=== PATIENT | female | born 1995 | race Caucasian/White ===

== ENCOUNTER 2016-05-04 02:50 | Emergency (ER) | payer BC, MEDICARE ==
[~2016-05-04 02:50] MED LIST: /ONDA4TA PO; ALBU17IN INH; CLON0.5T PO; COLA50CA3 PO; CONC54TA2 PO; FISH1000 PO; LOES1TAB2 PO; MICROGESTIN PO; PRIL20CA PO; TOPA50TA PO; multivitamin PO; pancreatic enzymes PO
--- NOTE | 2016-05-04 03:59 | EDDOCDS ---
Physician Documentation [facility] Name: Joyce Croft Age: 21 yrs Sex: Female : 1995 Arrival Date: 05/04/2016 Time: 02:50 Bed [facility] Private MD: Disposition: 05/04/16 03:29 Discharged to Home/Self Care. Impression: Acute stress reaction. - Condition is Stable. - Discharge Instructions: Helping Someone Who is Suicidal, Panic Attacks, Self-Destructive Behavior, Anger Management, Panic Attacks, [id number]. - Medication Reconciliation, Local Pharmacy Hours form. - Follow up: Private Physician; When: Call to arrange an appointment; Reason: Continuance of care. - Problem is an acute exacerbation. - Symptoms have improved. Historical: - Allergies: Adhesives; Azithromycin; Latex; Xanax; - Home Meds: 1. "all natural remedies when I am not feeling well" - PMHx: Anemia; Asthma; Ovarian cyst; Bipolar disorder; PTSD; Panic Disorder; Borderline Personality Disorder; Depression; ADHD; - PSHx: Adenoidectomy; Tonsillectomy; - Social history: Smoking status: Patient uses tobacco products, heavy tobacco smoker. No barriers to communication noted, The patient speaks fluent [place], Speaks appropriately for age. - Family history: Not pertinent. - : The pt / caregiver states he / she is not on anticoagulants. Home medication list is obtained from the patient. - Exposure Risk Screening:: None identified. Vital Signs: 05/04 02:59 BP 124 / 83; Pulse 60; Resp 16; Temp 98.1(O); Pulse Ox 97% ; Weight 47.17 kg / 103.99 mas lbs; Height 5 ft. 5 in. (165.10 cm); Pain 0/10; 03:36 BP 124 / 86; Pulse 60; Resp 18; Temp 98.0; Pulse Ox 98% ; Pain 0/10; slm 02:59 Body Mass Index 17.31 (47.17 kg, 165.10 cm) mas Signatures: Kirit Juarez DO DO mm11 Luh Mack,HEAT TREAT PULLER HEAT TREAT PULLER slRodolfo Luna,RN RN nn1 MTDD
--- NOTE | 2016-05-04 03:59 | EDDOCDS ---
Nurse's Notes [facility] Name: Joyce Croft Age: 21 yrs Sex: Female : 1995 Arrival Date: 05/04/2016 Time: 02:50 Bed [facility] MD: Diagnosis: Acute stress reaction Presentation: 05/04 02:52 Presenting complaint: Patient states: she did not want to go to [facility] for a year nn1 therefore she began stating she wanted to end her life to get out of it. Patient reports " I didn't mean what I said, I just wanted to get out of [facility]-way and go home" PD reports patient arrested tonight , began reporting suicidal ideations. Mental Health Triage Level: Level 2: The patient displays active suicidal ideations. Adult Sepsis Screening: The patient does not have new or worsening altered mentation. Patient's respiratory rate is less than 22. Systolic blood pressure is greater than 100. Patient has a qSOFA score of 0- Negative Sepsis Screen. Suicide/Homicide risk assessment- The patient admits to and/or has been reported to be having suicidal ideations. Status: Patient is not a information services tech or dependent. Transition of care: patient was not received from another setting of care. 02:52 Acuity: JIM Level 3 nn1 02:52 Method Of Arrival: Police Car nn1 Triage Assessment: 02:58 General: Appears distressed, Behavior is anxious, crying. Pain: Location: head Pain nn1 currently is 5 out of 10 on a pain scale. Quality of pain is described as dull. HIV screening NA for this visit Offered previously. The patient is triaged at the bedside. See Assessment in Nurses Notes section of ED record. Neurological: Level of Consciousness is awake, alert, obeys commands, Oriented to person, place, time. Respiratory: No deficits noted. Airway is patent Respiratory effort is even, unlabored, Respiratory pattern is regular, symmetrical, Breath sounds are clear bilaterally. GI: Abdomen is flat, non- distended Bowel sounds present X 4 quads. Reports nausea. Derm: Skin is pink, warm & dry. Superficial self inflicted cuts noted throughout bilateral arms, bilateral legs, abdomen. Patient reports she has not injured self in over a month. Historical: - Allergies: Adhesives; Azithromycin; Latex; Xanax; - Home Meds: 1. "all natural remedies when I am not feeling well" - PMHx: Anemia; Asthma; Ovarian cyst; Bipolar disorder; PTSD; Panic Disorder; Borderline Personality Disorder; Depression; ADHD; - PSHx: Adenoidectomy; Tonsillectomy; - Social history: Smoking status: Patient uses tobacco products, heavy tobacco smoker. No barriers to communication noted, The patient speaks fluent [place]i, Speaks appropriately for age. - Family history: Not pertinent. - : The pt / caregiver states he / she is not on anticoagulants. Home medication list is obtained from the patient. - Exposure Risk Screening:: None identified. Screenin:57 Screening information is obtained from the patient. Fall risk: No risks identified. slm Assistance ADL's: requires no assistance with activities of daily living. Abuse/DV Screen: The patient / caregiver reports he/she is: not in a situation that causes fear, pain or injury. Nutritional screening: No deficits noted. Advance Directives: Currently, there is no health care proxy. There is no active DNR order. There is no living will. There is no Power of Esl Instructional Assistant. Advance directive information has not previously been placed in an [facility] medical record. Further advance directive information is declined. home support is adequate. Assessment: 03:00 General: Appears in no apparent distress, Behavior is crying. Neurological: Level of slm Consciousness is awake, alert, obeys commands. Respiratory: Airway is patent Respiratory effort is even, unlabored. Derm: Skin is pink, warm & dry. 03:01 General: See triage assessment . nn1 03:56 General: Appears in no apparent distress, comfortable, Behavior is appropriate for age, slm cooperative, pleasant. General: pt seen by PSA . Respiratory: Airway is patent Respiratory effort is even, unlabored. Mental Health Eval: 02:54 Referral Information: Evaluation referral is generated by a police agency: [facility] on cl 9.41. The patient was referred for evaluation because Pt was abusing drugs tonight per [facility], was also arrested for drug possession, arraigned and then posted bail, reportedly made suicidal comments while at [facility] so was brought to ED by [facility].. 03:03 Mental Health history: ADHD, anxiety, Bipolar Disorder, depression, post-traumatic cl stress disorder, suicide gesture by by overdose Mental Health Admissions: [facility] 12/29...depression/SI. 03:21 Status: The patient is not a information services tech or dependent. cl Vital Signs: 02:59 BP 124 / 83; Pulse 60; Resp 16; Temp 98.1(O); Pulse Ox 97% ; Weight 47.17 kg; Height 5 mas ft. 5 in. (165.10 cm); Pain 0/10; 03:36 BP 124 / 86; Pulse 60; Resp 18; Temp 98.0; Pulse Ox 98% ; Pain 0/10; slm 02:59 Body Mass Index 17.31 (47.17 kg, 165.10 cm) [facility] Vitals: 03:58 Log In time N/A- police car arrival. slm ED Course: 02:52 Patient visited by Flora Vergara Reg. hs2 02:52 Patient moved to Waiting hs2 02:52 Patient moved to [facility] hs2 02:55 Triage Initiated nn1 02:58 Pt greeted and oriented to ED. Patient advised of names of staff involved in care, [facility] location of call hager, wait times and NPO status. Accompanied by Law Enforcement, [facility] on , Patient has correct armband on for positive identification. Placed in psych safe attire. Bed in low position. Call light in reach. Side rails up X 1. Security observing. Property removed, inventory done, secured in belongings bag- Placed in locker 5. Door closed. Noise minimized. Moved to private room. Verbal reassurance given. Warm blanket given. Pillow given. Psych Safety Check: Location: Psych Room. Visual Assessment: cooperative \\T\\ this time. 03:00 Patient visited by Timi Lafleur. [facility] 03:00 Kirit Juarez DO is Attending Physician. mm11 03:01 Patient visited by Kirit Juarez DO. mm11 03:16 Patient visited by Luh Mack LPN. slm 03:30 Patient visited by Kirit Juarez DO. mm11 03:56 Luh Mack LPN is Primary Nurse. sl 03:58 The patient / caregiver is instructed regarding the plan of care and ED course. slm 03:58 No IV's were initiated during this patient's visit. No procedures done that require slm assistance. Order Results: There are currently no results for this order. Outcome: 03:29 Discharge ordered by Provider. mm11 03:57 Discharge Assessment: Patient awake, alert and oriented x 3. No cognitive and/or slm functional deficits noted. Patient verbalized understanding of disposition instructions. patient administered narcotics - no. The following High Risk Discharge criteria are identified: Yes, pt seen by CHANCE and MD no concerns . Discharged to home ambulatory. Condition: good. Discharge instructions given to patient, Instructed on discharge instructions, follow up and referral plans. Demonstrated understanding of instructions, Pt was receptive of discharge instructions/ teaching. No special radiology studies were completed. 03:58 Patient left the ED. slm Signatures: Misael Dodge, Kirit Farrell, DO mm11 Timi Lafleur Stephanie,ADVERTISING SPECIALIST ADVERTISING SPECIALIST slm Rodolfo Hidalgo,RN RN nn1 Flora Vergara, Reg Reg hs2 Corrections: (The following items were deleted from the chart) 03:01 02:58 Derm: Skin is pink, warm & dry. nn1 nn1 MTDD
--- NOTE | 2016-05-06 04:59 | EDDOCDS ---
Physician Documentation [facility] Name: Joyce Croft Age: 21 yrs Sex: Female : 1995 Arrival Date: 05/04/2016 Time: 02:50 Bed [facility] Private MD: Disposition: 05/04/16 03:29 Discharged to Home/Self Care. Impression: Acute stress reaction. - Condition is Stable. - Discharge Instructions: Helping Someone Who is Suicidal, Panic Attacks, Self-Destructive Behavior, Anger Management, Panic Attacks, [id number]. - Medication Reconciliation, Local Pharmacy Hours form. - Follow up: Private Physician; When: Call to arrange an appointment; Reason: Continuance of care. - Problem is an acute exacerbation. - Symptoms have improved. Historical: - Allergies: Adhesives; Azithromycin; Latex; Xanax; - Home Meds: 1. "all natural remedies when I am not feeling well" - PMHx: Anemia; Asthma; Ovarian cyst; Bipolar disorder; PTSD; Panic Disorder; Borderline Personality Disorder; Depression; ADHD; - PSHx: Adenoidectomy; Tonsillectomy; - Social history: Smoking status: Patient uses tobacco products, heavy tobacco smoker. No barriers to communication noted, The patient speaks fluent Malaysian, Speaks appropriately for age. - Family history: Not pertinent. - : The pt / caregiver states he / she is not on anticoagulants. Home medication list is obtained from the patient. - Exposure Risk Screening:: None identified. Vital Signs: 05/04 02:59 BP 124 / 83; Pulse 60; Resp 16; Temp 98.1(O); Pulse Ox 97% ; Weight 47.17 kg / 103.99 mas lbs; Height 5 ft. 5 in. (165.10 cm); Pain 0/10; 03:36 BP 124 / 86; Pulse 60; Resp 18; Temp 98.0; Pulse Ox 98% ; Pain 0/10; slm 02:59 Body Mass Index 17.31 (47.17 kg, 165.10 cm) mas MDM: 04:13 Financial registration complete. [facility] 04:13 [facility] Payment Agreement was scanned into [employer] and attached to record. [facility] 14:22 T-Sheet-- Draft Copy was scanned into [employer] and attached to record. gb Signatures: Pamela Patel, Reg Reg gb Kirit Juarez, DO mm11 Luh Mack,URIAH OLIVEIRAN Love Randolph [facility] Rodolfo Hidalgo,RN RN nn1 The chart was reviewed and I authenticate all verbal orders and agree with the evaluation and treatment provided.Attachments: 04:13 [facility] Payment Agreement [facility] 14:22 T-Sheet-- Draft Copy Chart Complete MTDD
--- NOTE | 2016-05-06 04:59 | EDDOCDS ---
Physician Documentation [facility] Name: Joyce Croft Age: 21 yrs Sex: Female : 1995 Arrival Date: 05/04/2016 Time: 02:50 Bed [facility] Private MD: Disposition: 05/04/16 03:29 Discharged to Home/Self Care. Impression: Acute stress reaction. - Condition is Stable. - Discharge Instructions: Helping Someone Who is Suicidal, Panic Attacks, Self-Destructive Behavior, Anger Management, Panic Attacks, [id number]. - Medication Reconciliation, Local Pharmacy Hours form. - Follow up: Private Physician; When: Call to arrange an appointment; Reason: Continuance of care. - Problem is an acute exacerbation. - Symptoms have improved. Historical: - Allergies: Adhesives; Azithromycin; Latex; Xanax; - Home Meds: 1. "all natural remedies when I am not feeling well" - PMHx: Anemia; Asthma; Ovarian cyst; Bipolar disorder; PTSD; Panic Disorder; Borderline Personality Disorder; Depression; ADHD; - PSHx: Adenoidectomy; Tonsillectomy; - Social history: Smoking status: Patient uses tobacco products, heavy tobacco smoker. No barriers to communication noted, The patient speaks fluent [place], Speaks appropriately for age. - Family history: Not pertinent. - : The pt / caregiver states he / she is not on anticoagulants. Home medication list is obtained from the patient. - Exposure Risk Screening:: None identified. Vital Signs: 05/04 02:59 BP 124 / 83; Pulse 60; Resp 16; Temp 98.1(O); Pulse Ox 97% ; Weight 47.17 kg / 103.99 mas lbs; Height 5 ft. 5 in. (165.10 cm); Pain 0/10; 03:36 BP 124 / 86; Pulse 60; Resp 18; Temp 98.0; Pulse Ox 98% ; Pain 0/10; slm 02:59 Body Mass Index 17.31 (47.17 kg, 165.10 cm) mas MDM: 04:13 Financial registration complete. [facility] 04:13 [facility] Payment Agreement was scanned into [employer] and attached to record. [facility] 14:22 T-Sheet-- Draft Copy was scanned into [employer] and attached to record. gb Signatures: Pamela Patel, Reg Reg gb Kirit Juarez, DO mm11 Luh Mack,URIAH OLIVEIRAN Love Randolph [facility] Rodolfo Hidalgo,RN RN nn1 The chart was reviewed and I authenticate all verbal orders and agree with the evaluation and treatment provided.Attachments: 04:13 [facility] Payment Agreement [facility] 14:22 T-Sheet-- Draft Copy Chart Complete MTDD
--- NOTE | 2016-05-06 04:59 | EDDOCDS ---
Nurse's Notes [facility] Name: Joyce Croft Age: 21 yrs Sex: Female : 1995 Arrival Date: 05/04/2016 Time: 02:50 Bed [facility] MD: Diagnosis: Acute stress reaction Presentation: 05/04 02:52 Presenting complaint: Patient states: she did not want to go to long term for a year nn1 therefore she began stating she wanted to end her life to get out of it. Patient reports " I didn't mean what I said, I just wanted to get out of long term and go home" PD reports patient arrested tonight , began reporting suicidal ideations. Mental Health Triage Level: Level 2: The patient displays active suicidal ideations. Adult Sepsis Screening: The patient does not have new or worsening altered mentation. Patient's respiratory rate is less than 22. Systolic blood pressure is greater than 100. Patient has a qSOFA score of 0- Negative Sepsis Screen. Suicide/Homicide risk assessment- The patient admits to and/or has been reported to be having suicidal ideations. Status: Patient is not a vice president consulting services or dependent. Transition of care: patient was not received from another setting of care. 02:52 Acuity: JIM Level 3 nn1 02:52 Method Of Arrival: Police Car nn1 Triage Assessment: 02:58 General: Appears distressed, Behavior is anxious, crying. Pain: Location: head Pain nn1 currently is 5 out of 10 on a pain scale. Quality of pain is described as dull. HIV screening NA for this visit Offered previously. The patient is triaged at the bedside. See Assessment in Nurses Notes section of ED record. Neurological: Level of Consciousness is awake, alert, obeys commands, Oriented to person, place, time. Respiratory: No deficits noted. Airway is patent Respiratory effort is even, unlabored, Respiratory pattern is regular, symmetrical, Breath sounds are clear bilaterally. GI: Abdomen is flat, non- distended Bowel sounds present X 4 quads. Reports nausea. Derm: Skin is pink, warm & dry. Superficial self inflicted cuts noted throughout bilateral arms, bilateral legs, abdomen. Patient reports she has not injured self in over a month. Historical: - Allergies: Adhesives; Azithromycin; Latex; Xanax; - Home Meds: 1. "all natural remedies when I am not feeling well" - PMHx: Anemia; Asthma; Ovarian cyst; Bipolar disorder; PTSD; Panic Disorder; Borderline Personality Disorder; Depression; ADHD; - PSHx: Adenoidectomy; Tonsillectomy; - Social history: Smoking status: Patient uses tobacco products, heavy tobacco smoker. No barriers to communication noted, The patient speaks fluent Iranian, Speaks appropriately for age. - Family history: Not pertinent. - : The pt / caregiver states he / she is not on anticoagulants. Home medication list is obtained from the patient. - Exposure Risk Screening:: None identified. Screenin:57 Screening information is obtained from the patient. Fall risk: No risks identified. slm Assistance ADL's: requires no assistance with activities of daily living. Abuse/DV Screen: The patient / caregiver reports he/she is: not in a situation that causes fear, pain or injury. Nutritional screening: No deficits noted. Advance Directives: Currently, there is no health care proxy. There is no active DNR order. There is no living will. There is no Power of Nutrition Representative. Advance directive information has not previously been placed in an [facility] medical record. Further advance directive information is declined. home support is adequate. Assessment: 03:00 General: Appears in no apparent distress, Behavior is crying. Neurological: Level of slm Consciousness is awake, alert, obeys commands. Respiratory: Airway is patent Respiratory effort is even, unlabored. Derm: Skin is pink, warm & dry. 03:01 General: See triage assessment . nn1 03:56 General: Appears in no apparent distress, comfortable, Behavior is appropriate for age, slm cooperative, pleasant. General: pt seen by PSA . Respiratory: Airway is patent Respiratory effort is even, unlabored. Mental Health Eval: 02:54 Referral Information: Evaluation referral is generated by a police agency: [facility] on cl 9.41. The patient was referred for evaluation because Pt was abusing drugs tonight per [facility], was also arrested for drug possession, arraigned and then posted bail, reportedly made suicidal comments while at PS so was brought to ED by [facility].. 03:03 Mental Health history: ADHD, anxiety, Bipolar Disorder, depression, post-traumatic cl stress disorder, suicide gesture by by overdose Mental Health Admissions: [facility] 12/29...depression/SI. 03:21 Status: The patient is not a vice president consulting services or dependent. cl 03:55 [facility] Behavioral Health: The patient is not an established patient of [facility] Behavioral Health. 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 Pt is calm and cooperative, continues to deny any SI/HI, was threatened with spending a year in long term by Police so admittedly made statements so she could "go home". Pt denies any MH complaints, admits to daily cannabis, can CFS and requests d/c home. . Delusions are denied. Patient's mood is anxious, Hallucinations are denied. Mental Health history: Current Outpatient Mental Health Services: Therapist / Agency: Jennifer Vaughn. Current living environment is The patient currently lives with a roommate, . The patient is single. Patient presents to Emergency Department with the following symptoms within the past 2 weeks: drug abuse. Substance abuse: Patient uses marijuana daily. Mental status exam: Patients appearance is alternative, unkempt, Patient's behavior is cooperative, Speech is normal. Affect is appropriate. Mood is anxious. Hallucinations are denied. Appetite is normal. Memory is good. Energy level is normal. Content of thought is normal. Thought process is intact. Cognitive level is oriented to person, place, time and situation Patient's insight is fair. Judgement is fair. Rapport with interviewer is good. Suicidal Ideation is denied. Homicidal ideation is denied. Disposition: Medically cleared for disposition by Kirit Juarez DO Psychiatric Consult is deferred per ED physician, Dr Juarez. Disposition: The patient has a safe destination which is Pt requests d/c to friend's residence across the street from [facility] ED, declines any transportation, desires short walk to friend's residence where she is expected shortly, will f/u with her therapist Jennifer Vaughn as scheduled, has planned a trip to [place] this weekend to visit her "best friend". [facility] Admission Criteria: Not Applicable. [place] Safe [place]: [place] Safe [place] is not applicable because the patient does not display any suicidal or homicidal ideations and does not pose a risk to self or others. DSM-V Differential Diagnosis: Acute Stress Disorder (F 43.0). Insurance Pre-Certification: Not Required. Family Notification: Notification to family of patient status is not currently needed or appropriate. Vital Signs: 02:59 BP 124 / 83; Pulse 60; Resp 16; Temp 98.1(O); Pulse Ox 97% ; Weight 47.17 kg; Height 5 mas ft. 5 in. (165.10 cm); Pain 0/10; 03:36 BP 124 / 86; Pulse 60; Resp 18; Temp 98.0; Pulse Ox 98% ; Pain 0/10; m 02:59 Body Mass Index 17.31 (47.17 kg, 165.10 cm) [facility] Vitals: 03:58 Log In time N/A- police car arrival. [facility] ED Course: 02:52 Patient visited by Flora Vergara, Reg. hs2 02:52 Patient moved to [facility] hs2 02:52 Patient moved to [facility] hs2 02:55 Triage Initiated nn1 02:58 Pt greeted and oriented to ED. Patient advised of names of staff involved in care, [facility] location of call hager, wait times and NPO status. Accompanied by Law Enforcement, [facility] on , Patient has correct armband on for positive identification. Placed in psych safe attire. Bed in low position. Call light in reach. Side rails up X 1. Security observing. Property removed, inventory done, secured in belongings bag- Placed in locker 5. Door closed. Noise minimized. Moved to private room. Verbal reassurance given. Warm blanket given. Pillow given. Psych Safety Check: Location: Psych Room. Visual Assessment: cooperative \\T\\ this time. 03:00 Patient visited by Timi Lafleur. mas 03:00 Kirit Juarez DO is Attending Physician. mm11 03:01 Patient visited by Kirit Juarez DO. mm11 03:16 Patient visited by Luh Mack LPN. slm 03:30 Patient visited by Kirit Juarez DO. mm11 03:56 Luh Mack LPN is Primary Nurse. [facility] 03:58 The patient / caregiver is instructed regarding the plan of care and ED course. [facility] 03:58 No IV's were initiated during this patient's visit. No procedures done that require slm assistance. 04:13 [facility] Payment Agreement was scanned into [employer] and attached to record. [facility] 04:18 Patient name changed from Joyce\\S\\Erica\\S\\Hare\\S\\ to Joyce\\S\\L\\S\\Hare. EDMS 14:22 T-Sheet-- Draft Copy was scanned into [employer] and attached to record. Order Results: There are currently no results for this order. Outcome: 03:29 Discharge ordered by Provider. mm11 03:57 Discharge Assessment: Patient awake, alert and oriented x 3. No cognitive and/or slm functional deficits noted. Patient verbalized understanding of disposition instructions. patient administered narcotics - no. The following High Risk Discharge criteria are identified: Yes, pt seen by PSA and MD no concerns . Discharged to home ambulatory. Condition: good. Discharge instructions given to patient, Instructed on discharge instructions, follow up and referral plans. Demonstrated understanding of instructions, Pt was receptive of discharge instructions/ teaching. No special radiology studies were completed. 03:58 Patient left the ED. m Signatures: Dispatcher [employer] EDMS Misael Dodge, CHANCE PSA Pamela England, Reg Reg gb Kirit Juarez DO DO mm11 Timi Lafleur Stephanie, LPN LPN slm Hook, Sandra Rodolfo Redding RN RN nn1 Flora Vergara, Reg Reg hs2 Corrections: (The following items were deleted from the chart) 03:01 02:58 Derm: Skin is pink, warm & dry. nn1 nn1 Chart Complete MTDD
== END 2016-05-04 03:58 | disposition home or self-care (01) ==
LOC: M ED 02:50
DX: F43.0 Acute stress reaction (principal); F32.9 Major depressive disorder, single episode, unspecified; F17.210 Nicotine dependence, cigarettes, uncomplicated; Z91.040 Latex allergy status; Z88.8 Allergy status to other drugs, medicaments and biological substances; Z88.1 Allergy status to other antibiotic agents; Z91.09 Other allergy status, other than to drugs and biological substances

== ENCOUNTER 2016-12-15 00:19 | Emergency (ER) | payer BC, MEDICARE ==
[~2016-12-15] VITALS: Ht 165.1 cm; Wt 52.3 kg
[2016-12-15 00:28] VITALS: BP 119/66
[2016-12-15] MEDS ORDERED: AUGM875T28 PO (01:13)
[2016-12-15] MEDS ORDERED: AUGMENTIN 875 MG TAB PO ONE (01:15)
== END 2016-12-15 01:55 | disposition home or self-care (01) ==
LOC: M ED 00:19
DX: S61.431A Puncture wound without foreign body of right hand, initial encounter (principal); Z87.891 Personal history of nicotine dependence; W53.11XA Bitten by rat, initial encounter; Y92.099 Unspecified place in other non-institutional residence as the place of occurrence of the external cause; Y93.89 Activity, other specified; Y99.9 Unspecified external cause status

== ENCOUNTER 2018-03-09 15:52 | Emergency (ER) | payer BC, MEDICARE ==
[~2018-03-09] VITALS: Ht 162.6 cm; Wt 50.9 kg
[~2018-03-09 15:52] MED LIST changes: +AUGM875T28 PO
[2018-03-09 16:42] LABS: URINE PREG TEST NEGATIVE (NEGATIVE)
[2018-03-09 17:47] LABS: HEMOGLOBIN A1c 5.4 %
[2018-03-09 17:55] LABS: ALBUMIN 4.4 GM/DL (3.2-5.2); ALT/SGPT 18 U/L (12-78); BILIRUBIN,TOTAL 0.6 MG/DL (0.2-1.0); BLOOD UREA NITROGEN 11 MG/DL (7-18); CALCIUM LEVEL 8.9 MG/DL (8.5-10.1); CARBON DIOXIDE LEVEL 26 MEQ/L (21-32); CHLORIDE LEVEL 107 MEQ/L (98-107); CREATININE FOR GFR 0.75 MG/DL (0.55-1.30); GLOMERULAR FILTRATION RATE > 60.0 (>60); GLUCOSE, FASTING 90 MG/DL (70-100); POTASSIUM SERUM 4.8 MEQ/L (3.5-5.1); SODIUM LEVEL 140 MEQ/L (136-145); TOTAL PROTEIN 7.5 GM/DL (6.4-8.2)
[2018-03-09 18:01] VITALS: BP 131/58
== END 2018-03-09 18:07 | disposition home or self-care (01) ==
LOC: M ED 15:52
DX: E16.2 Hypoglycemia, unspecified (principal)

== ENCOUNTER 2018-05-09 17:53 | Inpatient (IN) | payer BC, MEDICARE ==
[~2018-05-09] VITALS: Ht 162.6 cm; Wt 52.0 kg
[2018-05-09 19:10] LABS: HEMATOCRIT 37.5 % (36.0-47.0); HEMOGLOBIN 12.6 g/dl (12.0-15.5); MEAN CORPUSCULAR HEMOGLOBIN 30.3 pg (27.0-33.0); MEAN CORPUSCULAR HGB CONC 33.6 g/dl (32.0-36.5); MEAN CORPUSCULAR VOLUME 90.1 fl (80.0-96.0); PLATELET COUNT, AUTOMATED 168 10^3/uL (150-450); RED BLOOD COUNT 4.16 10^6/uL (4.00-5.40); WHITE BLOOD COUNT 10.1 10^3/uL (4.0-10.0)
[2018-05-09 19:16] LABS: HCG, SERUM QUALITATIVE NEGATIVE (NEGATIVE)
[2018-05-09 19:32] LABS: ACETAMINOPHEN LEVEL < 2.0 UG/ML (10.0-30.0); ALBUMIN 4.2 GM/DL (3.2-5.2); ALT/SGPT 14 U/L (12-78); AMPHETAMINES LEVEL URINE NEGATIVE (NEGATIVE); BARBITURATES URINE NEGATIVE (NEGATIVE); BENZODIAZEPINES URINE NEGATIVE (NEGATIVE); BILIRUBIN,DIRECT 0.1 MG/DL (0.0-0.2); BILIRUBIN,TOTAL 0.8 MG/DL (0.2-1.0); BLOOD UREA NITROGEN 12 MG/DL (7-18); CALCIUM LEVEL 8.2 MG/DL (8.5-10.1); CANNABINOIDS URINE NEGATIVE (NEGATIVE); CARBON DIOXIDE LEVEL 21 MEQ/L (21-32); CHLORIDE LEVEL 111 MEQ/L (98-107); COCAINE METABOLITE URINE NEGATIVE (NEGATIVE); CREATININE FOR GFR 0.67 MG/DL (0.55-1.30); ETHYL ALCOHOL (ETHANOL) < 0.003 % (0.000-0.010); GLOMERULAR FILTRATION RATE > 60.0 (>60); GLUCOSE, FASTING 82 MG/DL (70-100); METHADONE URINE NEGATIVE (NEGATIVE); OPIATES URINE NEGATIVE (NEGATIVE); PHENCYCLIDINE URINE NEGATIVE (NEGATIVE); POTASSIUM SERUM 4.3 MEQ/L (3.5-5.1); SALICYLATE LEVEL < 1.7 MG/DL (5.0-30.0); SODIUM LEVEL 140 MEQ/L (136-145); TOTAL PROTEIN 7.2 GM/DL (6.4-8.2)
[2018-05-09] MEDS ORDERED: ACETAMINOPHEN TAB 650MG DOSE (2X325MG) PO PRN (20:15)
[2018-05-09] MEDS ORDERED: MOM 30ML SUSPENSION UDC PO PRN (20:15)
[2018-05-09] MEDS ORDERED: OLANZapine ORAL DISINTEGRATING TAB 5MG PO PRN (20:15)
[2018-05-09] MEDS ORDERED: MAALOX 30 ML SUSP *UDC PO PRN (20:15)
[2018-05-09] MEDS ORDERED: traZODone 50 MG TAB PO PRN (20:15)
[2018-05-09] MEDS ORDERED: clonazePAM 0.5 MG TAB PO ONE (20:30)
[2018-05-09] MEDS ORDERED: ADACEL/BOOSTRIX VACCINE (DIPHTH/PERTUSS/ACELL/TETANUS)0.5ML SYR (90715) IM ONE (20:30)
[2018-05-09 21:11] VITALS: BP 134/66
[2018-05-10] MEDS ORDERED: LORazepam 2 MG TAB PO ONE (00:30)
[2018-05-10 06:06] VITALS: BP 109/53
[2018-05-10] MEDS: SERTRALINE HCL 50 MG TAB PO SCH (09:00)
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
[2018-05-10 18:00] VITALS: BP 98/56
[2018-05-10] MEDS ORDERED: ONDANSETRON 4 MG ORAL DISINTEGRATING TAB (Q0162 PER 1MG) PO PRN (21:45)
[2018-05-10] MEDS: LORazepam 0.5 MG TAB PO PRN (21:48)
[2018-05-10] MEDS: MIRTAZAPINE 15 MG TAB PO SCH (23:37)
[2018-05-11 06:21] VITALS: BP 105/58
[2018-05-11] MEDS: SERTRALINE HCL 50 MG TAB PO SCH (09:00)
--- NOTE | 2018-05-11 16:05 | MHIPNPDOC ---
[facility] Progress Note Progress Note DATE OF SERVICE: 05/11/18 HISTORY: Patient is a 23 -year-old , female, who according to ED report: "Pt stated she was so upset, "hard to remember what she said today or weather she was suicidal or not," Michel Garvey reported he presented her to ED or he was going to call (!!, pt came with him after he saw her left forearm, and all the blood. pt was very guarded in her presentation, SO Mcihel Garvey stated she was suicidal with plan kept saying "I don't want to exist anymore, I want to , I don't want to be alive , they will have to take me out in a body bag," then Michel went to take a shower, pt stated she found a "spread cutter, " and "kept trying to cut deeper, but the press box custodian wasn't sharp enough," Pt made many cuts on her left forearm, cuts monthly her thigh area, sees Jennifer Garridoil Therapist at [facility], "I didn't tell Jennifer, wanted her to think I have been doing well, I have been having an urge to cut for over a month." Per Michel Garvey, Stressors are 1 Being told they have to leave their apartment by September, 2. has to go back to work at . helping , "after taking a month off for mental reasons," 3. Wants to go to cosmetology school, can't now if they move, 4. Borderline personality 5. Seasonal depression, 6. [place] secure in apartment now has to leave, 7. her adoptive father is getting older and dying. Pt reports sleeping is normalizing past week, eating more the past week, "can't or won't answer if she is +SI, "I not sure," very guarded in her presentation, denies HI, AH, VH, Illegal drug use, drinks wine socially, has had 4 attempts of suicide in the past 2 by hanging, and 2 by OD, last time in 2016, before Michel came into her life. Pt also reported grieving the loss of a friend Letty over a year ago, "drug OD."Pt presents hopeless and helpless, very tear full." VITAL SIGNS: See below. NEW TEST RESULTS: See below CURRENT MEDICATIONS: See below. MENTAL STATUS EXAMINATION: General Appearance: well groomed, appears stated age, hospital scrubs/clothing, lacerations Build: average Demeanor: average, pleasant Eye Contact: good Activity: average, calm Behavior: cooperative, anhedonia Speech: clear, spontaneous, reg/rate,rhythm,volume Mood: euthymic Affect: congruent with mood Thought Process: logical/linear Thought Content (Other): obsessional Thought Content (Aggressive): none reported Perception (Hallucinations): none reported Perception (Other): none reported Cognition (Impairment of): attention/concentration Cognition(Intelligence Est.): average Oriented: Awake, Alert, Oriented times three Insight: Improving Judgment: Poor Psychosis: Denies Diagnoses 1. Major Depressive disorder, recurrent 2. PTSD 3. borderline Personality disorder ASSESSMENT: She is very pleasant, she looks happy, she is goal directed, she says she wants to be a engineering department chair, she says she feels embarrassed about making poor choices, about "loosing my marbles" because "I haven't had a slip off in a long period of time". She says this sitaton was triggered in part because her landlord has told her and her BF that they had to leave in September. She was upset because she has been very supportive to the landlord and then she felt betrayed by this man. When she was in the middle of this crisis, her BF was watching TV and although he was supportive, she would have felt better if he would have reacted sooner. She says she has a room with pet rats, she has a dog and a cat and it will be difficult for her to find a place to live. MANAGEMENT PLAN: Continue with the same treatment plan. TIME SPENT: 30 minutes. Vital Signs Vital Signs Date Time Temp Pulse Resp B/P (MAP) Pulse Ox O2 Delivery O2 Flow Rate FiO2 05/11/18 06:21 98.8 56 14 105/58 (74) 05/09/18 21:11 Room Air 05/09/18 20:50 99 Current Medications Current Medications Acetaminophen (Tylenol Tab) 650 mg Q6HP PRN PO HEADACHE or DISCOMFORT Last administered on 05/10/18at 22:02; Start 05/09/18 at 20:15 Al Hydrox/Mg Hydrox/Simethicone (Mylanta) 30 ml Q4HP PRN PO HEARTBURN/INDIGESTION Last administered on 05/10/18at 23:08; Start 05/09/18 at 20:15 Lorazepam (Ativan) 0.5 mg Q6HP PRN PO ANXIETY Last administered on 05/10/18at 21:48; Start 05/10/18 at 21:45 Magnesium Hydroxide (Milk Of Magnesia) 30 ml DAILYPRN PRN PO CONSTIPATION; Start 05/09/18 at 20:15 Mirtazapine (Remeron) 30 mg QHS PO Last administered on 05/10/18at 23:37; Start 05/10/18 at 21:00 Olanzapine (ZyPREXA ZYDIS) 5 mg Q6HP PRN PO ANXIETY/AGITATION; Start 05/09/18 at 20:15 Ondansetron HCl (Zofran Odt) 4 mg Q4HP PRN PO NAUSEA OR VOMITING Last administered on 05/10/18at 21:48; Start 05/10/18 at 21:45 Sertraline HCl (Zoloft) 50 mg DAILY PO ; Start 05/10/18 at 09:00 Trazodone HCl (Desyrel) 50 mg QHSP PRN PO INSOMNIA; Start 05/09/18 at 20:15 Allergies Coded Allergies: Alprazolam (Verified Allergy, Severe, throat closure, 05/09/18) Azithromycin (Verified Allergy, Intermediate, hives, 05/09/18) Latex (Verified Allergy, Unknown, RASH, 07/16/12) MARY SEGURA MD May 11, 2018 15:37
[2018-05-11 18:00] VITALS: BP 117/57
[2018-05-11] MEDS: MIRTAZAPINE 15 MG TAB PO SCH (21:00)
[2018-05-11] MEDS: LORazepam 0.5 MG TAB PO PRN (22:49)
[2018-05-12] MEDS: LORazepam 0.5 MG TAB PO PRN (05:47)
[2018-05-12 06:00] VITALS: BP 93/52
--- NOTE | 2018-05-12 06:23 | HPE ---
DATE OF ADMISSION: 05/09/2018 Please refer to the psychiatric history and evaluation for further details on this admission. This examination and history performed is intended for medical issues which may need treatment, followup or consultation on this 23-year-old male. ALLERGIES: - ALPRAZOLAM - ZITHROMAX - LATEX SOCIAL HISTORY: She is single. ETOH - once a week she will have a couple of drinks. Smokes - she says she quit 03/10/2017. Recreational drug use - she used to smoke week, dabbled in a few other things and has had no drugs or weed since 2016. PAST MEDICAL HISTORY: 1. She has had hypoglycemia, she needs to watch what she eats. 2. History of depression. 3. Post traumatic stress disorder (PTSD). PAST SURGICAL HISTORY: Tonsillectomy and adenoidectomy. HOME MEDICATIONS: None. LABORATORY STUDIES: WBC 10.1, hemoglobin 12.6, hematocrit 37.5, platelets 168. Sodium 140, potassium 4.3, chloride 111, CO2 21, BUN 12, creatinine 0.67, calcium low at 8.2. Toxicology screen was negative. REVIEW OF SYSTEMS: 10 systems review was done and other than a few superficial lacerations on her left inner forearm was unremarkable. She states occasional constipation. Denies abdominal pain. No hematochezia, melena or rectal bleeding. PHYSICAL EXAMINATION: 23-year-old cooperative female in no acute distress. Height 64 inches. Weight 52.1 kg. Body mass index (BMI) 19.7. The patient is alert and oriented times three. Blood pressure is 105/58. Pulse 56. Respirations 14. Temperature 98.8. Pupils equal and react to light. Extraocular movements intact. Cornea and sclera clear. Conjunctiva normal. No facial asymmetry. Pharynx, tongue and gums pink and moist. Tongue is midline. Neck is supple, without lymphadenopathy. No thyromegaly. No goiter. Carotids 2+, without bruit. Chest clear to auscultation, without wheeze or retraction. Heart is regular. Abdomen benign. Bowel sounds positive. Genitourinary ()/Rectal: Not done. Extremities show equal strength, full range of motion. No cyanosis, clubbing or edema. Peripheral pulses equal and palpable bilaterally. Skin is warm and dry. Left inner forearm has numerous superficial lacerations. No redness, drainage or swelling. IMPRESSION AND PLAN: 1. Psychiatric. Plan per psychiatry. 2. Numerous lacerations left inner forearm. No redness, drainage or swelling. Monitor for infection. 3. History of hypoglycemia. Continue to monitor diet. 4. No acute medical issues.
[2018-05-12] MEDS: SERTRALINE HCL 50 MG TAB PO SCH (09:00)
--- NOTE | 2018-05-12 11:28 | MHIPNPDOC ---
[facility] Progress Note Progress Note DATE OF SERVICE: 05/12/18 HISTORY: As per Dr. Wagner: "Patient is a 23 -year-old , female, who according to ED report: "Pt stated she was so upset, "hard to remember what she said today or weather she was suicidal or not," Michel Garvey reported he presented her to ED or he was going to call (!!, pt came with him after he saw her left forearm, and all the blood. pt was very guarded in her presentation, SO Michel Garvey stated she was suicidal with plan kept saying "I don't want to exist anymore, I want to , I don't want to be alive , they will have to take me out in a body bag," then Michel went to take a shower, pt stated she found a "core cutter and reamer, " and "kept trying to cut deeper, but the box storage worker wasn't sharp enough," Pt made many cuts on her left forearm, cuts monthly her thigh area, sees Jennifer Garridoil Therapist [place] [facility], "I didn't tell Jennifer, wanted her to think I have been doing well, I have been having an urge to cut for over a month." Per Michel Garvey, Stressors are 1 Being told they have to leave their apartment by September, 2. has to go back to work at [employer]. helping , "after taking a month off for mental reasons," 3. Wants to go to cosmetology school, can't now if they move, 4. Borderline personality 5. Seasonal depression, 6. [address] secure in apartment now has to leave, 7. her adoptive father is getting older and dying. Pt reports sleeping is normalizing past week, eating more the past week, "can't or won't answer if she is +SI, "I not sure," very guarded in her presentation, denies HI, AH, VH, Illegal drug use, drinks wine socially, has had 4 attempts of suicide in the past 2 by hanging, and 2 by OD, last time in 2016, before Michel came into her life. Pt also reported grieving the loss of a friend Letty over a year ago, "drug OD."Pt presents hopeless and helpless, very tear full."" VITAL SIGNS: See below. NEW TEST RESULTS: See below CURRENT MEDICATIONS: See below. MENTAL STATUS EXAMINATION: General Appearance: well groomed, appears stated age, own clothing, lacerations Build: average Demeanor: average, pleasant Eye Contact: good Activity: average, calm Behavior: cooperative, anxious Speech: clear, spontaneous, reg/rate,rhythm,volume Mood: euthymic,full, anxious Affect: congruent with mood Thought Process: logical/linear Thought Content (Other): none reported Thought Content (Aggressive): none reported Perception (Hallucinations): none reported Perception (Other): none reported Cognition (Impairment of): none reported Cognition(Intelligence Est.): average Oriented: Awake, Alert, Oriented times three Insight: fair Judgment: fair Psychosis: Denies Diagnoses 1. Major Depressive disorder, recurrent 2. PTSD 3. borderline Personality disorder ASSESSMENT: Pt seen and states she's doing well and denies depression. States she's embarrassed she cut herself, "had a slip," and embarrassed she's here. States she's feeling much better b/c her boyfriend has worked things out with her landlord who agrees to allow her to stay until the fall as previously agreed which she feels good about. 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 Denies she feels she needs psychotropic medication as she's been doing well in therapy with Jennifer Stiles. States she would like something for occasional anxiety. Recommended atarax prn and if she doesn't like it or has side effects it can be discontinued. Refuses to take zoloft and remeon so will d/c. Is attending groups and finding helpful. Denies SI/HI, hallucinations, delusions. Feels safe here. Is looking forward to going home soon and seeing her pet rats, dog, and, cat. MANAGEMENT PLAN: Continue with the same treatment plan. D/c zoloft and remeron as pt refuses to take. Provide atarax prn anxiety Medications: atarax 10mg q6hr prn anxiety Trazodone 50 mg QHSP PRN PO INSOMNIA TIME SPENT: 30 minutes. Vital Signs Vital Signs Date Time Temp Pulse Resp B/P (MAP) Pulse Ox O2 Delivery O2 Flow Rate FiO2 05/12/18 06:00 97.9 65 18 93/52 (66) Room Air 05/09/18 20:50 99 Current Medications Current Medications Acetaminophen (Tylenol Tab) 650 mg Q6HP PRN PO HEADACHE or DISCOMFORT Last administered on 05/10/18at 22:02; Start 05/09/18 at 20:15 Al Hydrox/Mg Hydrox/Simethicone (Mylanta) 30 ml Q4HP PRN PO HEARTBURN/INDIGESTION Last administered on 05/10/18at 23:08; Start 05/09/18 at 20:15 Lorazepam (Ativan) 0.5 mg Q6HP PRN PO ANXIETY Last administered on 05/12/18at 05:47; Start 05/10/18 at 21:45 Magnesium Hydroxide (Milk Of Magnesia) 30 ml DAILYPRN PRN PO CONSTIPATION; Start 05/09/18 at 20:15 Mirtazapine (Remeron) 30 mg QHS PO Last administered on 05/10/18at 23:37; Start 05/10/18 at 21:00 Olanzapine (ZyPREXA ZYDIS) 5 mg Q6HP PRN PO ANXIETY/AGITATION; Start 05/09/18 at 20:15 Ondansetron HCl (Zofran Odt) 4 mg Q4HP PRN PO NAUSEA OR VOMITING Last administered on 05/10/18at 21:48; Start 05/10/18 at 21:45 Sertraline HCl (Zoloft) 50 mg DAILY PO ; Start 05/10/18 at 09:00 Trazodone HCl (Desyrel) 50 mg QHSP PRN PO INSOMNIA; Start 05/09/18 at 20:15 Allergies Coded Allergies: Alprazolam (Verified Allergy, Severe, throat closure, 05/09/18) Azithromycin (Verified Allergy, Intermediate, hives, 05/09/18) Latex (Verified Allergy, Unknown, RASH, 07/16/12) STEPHEN WIGGINS DO May 12, 2018 10:55 am
[2018-05-12] MEDS ORDERED: hydrOXYzine 10 MG TAB PO PRN (11:30)
[2018-05-12 18:26] VITALS: BP 123/70
[2018-05-13 06:34] VITALS: BP 96/50
[2018-05-13] MEDS ORDERED: DOCUSATE SODIUM 100 MG CAP PO SCH (09:00)
--- NOTE | 2018-05-13 09:06 | MHDSPDOC ---
[facility] Discharge Summary Discharge Summary DATE OF ADMISSION: May 09, 2018 at 8:55 pm DATE OF DISCHARGE: May 13, 2018 DISCHARGE DIAGNOSES: 1. Major Depressive disorder, recurrent 2. PTSD 3. borderline Personality disorder REASON FOR ADMISSION: As per Dr. Wagner: "Patient is a 23 -year-old , female, who according to ED report: "Pt stated she was so upset, "hard to remember what she said today or weather she was suicidal or not," Michel (ROSA Garvey reported he presented her to ED or he was going to call (!!, pt came with him after he saw her left forearm, and all the blood. pt was very guarded in her presentation, SO Michel Garvey stated she was suicidal with plan kept saying "I don't want to exist anymore, I want to , I don't want to be alive , they will have to take me out in a body bag," then Michel went to take a shower, pt stated she found a "tip cutter, " and "kept trying to cut deeper, but the slip box changer wasn't sharp enough," Pt made many cuts on her left forearm, cuts monthly her thigh area, sees Jennifer Garridoil Therapist at [facility], "I didn't tell Jennifer, wanted her to think I have been doing well, I have been having an urge to cut for over a month." Per Michel Garvey, Stressors are 1 Being told they have to leave their apartment by September, 2. has to go back to work at . helping , "after taking a month off for mental reasons," 3. Wants to go to cosmetology school, can't now if they move, 4. Borderline personality 5. Seasonal depression, 6. [place] secure in apartment now has to leave, 7. her adoptive father is getting older and dying. Pt reports sleeping is normalizing past week, eating more the past week, "can't or won't answer if she is +SI, "I not sure," very guarded in her presentation, denies HI, AH, VH, Illegal drug use, drinks wine socially, has had 4 attempts of suicide in the past 2 by hanging, and 2 by OD, last time in 2015, before Michel came into her life. Pt also reported grieving the loss of a friend Letty over a year ago, "drug OD."Pt presents hopeless and helpless, very tear full."" CONSULTANTS INVOLVED: none TREATMENT AND PROGRESS ON THE UNIT : Pt was admitted to [facility], seen for psychiatric assessment and Dr. Wagner attempt to started pt on zoloft 25mg daily for mood and anxiety which she refused stating that she didn't feel she needed any intermediate antipsychotic treatment as she thought her outpatient therapy with Jennifer Byrnes at [facility] was beneficial enought. She was provided vistaril 10mg q6hr prn anxiety and trazodone 50mg qhs prn insomnia. Pt did receive ativan prn anxiety when she was admitted that she took frequently at night so it was discontinued and pt continued to be medication seeking for it stating she couldn't take benadryl or vistaril b/c they gave her a stomach ache. Pt found her medications beneficial and tolerated them well. She attended groups daily during her stay. Her symptoms improved with treatment. On day of discharge she denied depression, anxiety, insomnia, SI/HI, hallucinations, delusions. She was discharged home after family meeting with her boyfriend with follow-up at [facility] with Jennifer Byrnes. She felt safe for discharge. DISCHARGE ASSESSMENT: Pt seen and states she's doing well and denies depression, is looking forward to going home today. Continues to be embarrassed she cut herself that she's here. States she's feeling much better b/c her boyfriend has worked things out with her landlord who agrees to allow her to stay until the fall as previously agreed which she feels good about. 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 Denies she feels she needs psychotropic medication as she's been doing well in therapy with Jennifer Byrnes. Would like to continue atarax prn anxiety outpatient just incase she feels she needs something to help uncontrollable anxiety at home. Is attending groups and finding helpful. Denies depression, anxiety, insomnia, SI/HI, hallucinations, delusions. Feels safe to be discharged home with her boyfriend. Is looking forward to going home today and seeing her pet rats, dog, and, cat. MENTAL STATUS EXAMINATION ON DISCHARGE: General Appearance: well groomed, appears stated age, own clothing, lacerations Build: average Demeanor: average, pleasant Eye Contact: good Activity: average, calm Behavior: cooperative Speech: clear, spontaneous, reg/rate,rhythm,volume Mood: euthymic,full, bright Affect: congruent with mood Thought Process: logical/linear Thought Content (Other): none reported Thought Content (Aggressive): none reported Perception (Hallucinations): none reported Perception (Other): none reported Cognition (Impairment of): none reported Cognition(Intelligence Est.): average Oriented: Awake, Alert, Oriented times three Insight: fair-good Judgment: fair-good Psychosis: Denies MEDICATIONS ON DISCHARGE: atarax 10mg q6hr prn anxiety Trazodone 50 mg QHSP PRN PO INSOMNIA PLAN/FOLLOWUP ARRANGEMENTS: D/c home with follow-up with Jennifer Byrnes at [facility]. The amount of time spent in the coordination of care for this patient was approximately 30 minutes. Vital Signs/I&Os Vital Signs Date Time Temp Pulse Resp B/P (MAP) Pulse Ox O2 Delivery O2 Flow Rate FiO2 05/13/18 06:34 97.4 56 12 96/50 (65) 05/12/18 06:00 Room Air 05/09/18 20:50 99 Medications No Active Prescriptions or Reported Meds Allergies Coded Allergies: Alprazolam (Verified Allergy, Severe, throat closure, 05/09/18) Azithromycin (Verified Allergy, Intermediate, hives, 05/09/18) Latex (Verified Allergy, Unknown, RASH, 07/16/12) STEPHEN WIGGINS DO May 13, 2018 9:06 am
[2018-05-13] MEDS ORDERED: HYDR-643 PO (09:07)
[2018-05-13] MEDS ORDERED: TRAZO50TA PO (09:07)
== END 2018-05-13 11:50 | disposition home or self-care (01) | DRG 751 ==
LOC: M ED 17:53 → M PSY 20:55
PROVIDERS: ADMIT Psychiatry & Neurology Psychiatry; ATTEND Psychiatry & Neurology Psychiatry
DX: F33.9 Major depressive disorder, recurrent, unspecified (principal); F60.3 Borderline personality disorder; F43.10 Post-traumatic stress disorder, unspecified; Z91.410 Personal history of adult physical and sexual abuse; Z91.5 Personal history of self-harm; Z81.8 Family history of other mental and behavioral disorders; Z81.1 Family history of alcohol abuse and dependence; Z91.040 Latex allergy status; Z88.1 Allergy status to other antibiotic agents; Z88.8 Allergy status to other drugs, medicaments and biological substances; Z87.891 Personal history of nicotine dependence; S51.812A Laceration without foreign body of left forearm, initial encounter; X78.8XXA Intentional self-harm by other sharp object, initial encounter; Y92.039 Unspecified place in apartment as the place of occurrence of the external cause; Z63.4 Disappearance and death of family member

== ENCOUNTER → 2018-08-06 | Outpatient (CLI) | payer BC, MEDICARE ==
[~2018-08-06] MED LIST changes: -/ONDA4TA PO; +HYDR-643 PO; +ONDA-1 PO; +TRAZO50TA PO
--- NOTE | 2018-08-06 17:46 | REP ---
LEFT AXILLARY ULTRASOUND: Real-time sonographic evaluation of the left axilla are performed in the region of a reported palpable abnormality. No cystic or solid mass is seen. IMPRESSION: No cystic or solid mass is seen sonographically in the left axillary region. Electronically Signed by William Avila MD 08/07/2018 11:05 A
== END ==
LOC: M RAD 16:16
PROVIDERS: ATTEND Physician Assistant
DX: Z86.018 Personal history of other benign neoplasm (principal)

== ENCOUNTER → 2018-08-20 | Outpatient (CLI) | payer BC, MEDICARE ==
[2018-08-20 17:25] LABS: BASO % 0.4 % (0.0-1.0); EOS # 0.1 10^3/uL (0.0-0.50); HEMATOCRIT 39.1 % (36.0-47.0); HEMOGLOBIN 12.9 g/dl (12.0-15.5); LYMPH # 1.9 10^3/uL (1.5-6.5); LYMPH % 19.6 % (24.0-44.0); MEAN CORPUSCULAR HEMOGLOBIN 30.6 pg (27.0-33.0); MEAN CORPUSCULAR VOLUME 92.7 fl (80.0-96.0); MONO # 0.9 10^3/uL (0.0-0.8); MONO % 8.7 % (0.0-5.0); NEUTROPHILS # 6.9 10^3/uL (1.8-7.7); PLATELET COUNT, AUTOMATED 198 10^3/uL (150-450); RED BLOOD COUNT 4.22 10^6/uL (4.00-5.40); WHITE BLOOD COUNT 9.8 10^3/uL (4.0-10.0)
[2018-08-20 21:54] LABS: CHLAMYDIA DNA AMPLIFICATION NEGATIVE (NEGATIVE); GC DNA AMPLIFICATION NEGATIVE (NEGATIVE)
[2018-08-22 10:41] LABS: HIV 1&2 SCREEN CENTAUR NEGATIVE (NEGATIVE); RUBELLA IgG QUALITATIVE IMMUNE (IMMUNE)
== END ==
LOC: M SMT 14:24
PROVIDERS: ATTEND Advanced Practice Midwife
DX: Z36.89 Encounter for other specified antenatal screening (principal)

== ENCOUNTER → 2018-08-27 | Outpatient (CLI) | payer BC, MEDICARE | LOC: M SMT 15:05 | PROVIDERS: ATTEND Advanced Practice Midwife | DX: Z34.81 Encounter for supervision of other normal pregnancy, first trimester (principal) ==

== ENCOUNTER → 2018-09-17 | Outpatient (CLI) | payer BC, MEDICARE ==
[~2018-09-17] MED LIST changes: +TRAZ1TAB10 PO; -TRAZO50TA PO
== END ==
LOC: M SMT 14:30
PROVIDERS: ATTEND Advanced Practice Midwife
DX: Z36.89 Encounter for other specified antenatal screening (principal)

== ENCOUNTER 2018-10-29 17:59 | Emergency (ER) | payer BC, MEDICARE, MEDICAID ==
[~2018-10-29] VITALS: Ht 165.1 cm; Wt 55.5 kg
[2018-10-29] MEDS ORDERED: FOLI1TAB11 (18:09)
[2018-10-29] MEDS ORDERED: PREN29TA4 PO (18:09)
[2018-10-29 20:37] LABS: BASO % 0.3 % (0.0-1.0); EOS # 0.1 10^3/uL (0.0-0.50); EOS % 0.7 % (0.0-3.0); HEMATOCRIT 30.7 % (36.0-47.0); HEMOGLOBIN 10.5 g/dl (12.0-15.5); LYMPH # 2.1 10^3/uL (1.5-6.5); LYMPH % 17.2 % (24.0-44.0); MEAN CORPUSCULAR HEMOGLOBIN 30.9 pg (27.0-33.0); MEAN CORPUSCULAR HGB CONC 34.2 g/dl (32.0-36.5); MEAN CORPUSCULAR VOLUME 90.3 fl (80.0-96.0); MONO # 0.8 10^3/uL (0.0-0.8); MONO % 6.8 % (0.0-5.0); NEUTROPHILS # 9.1 10^3/uL (1.8-7.7); NEUTROPHILS % 74.7 % (36.0-66.0); PLATELET COUNT, AUTOMATED 175 10^3/uL (150-450); WHITE BLOOD COUNT 12.1 10^3/uL (4.0-10.0)
[2018-10-29] MEDS ORDERED: ALBUTEROL SULFATE 2.5 MG/0.5 ML INH NEB SOLN NEB ONE (20:45)
[2018-10-29] MEDS ORDERED: ALBU83IN NEB (22:19)
[2018-10-29 22:27] VITALS: BP 113/57
--- NOTE | 2018-10-30 05:42 | ECGEPIP ---
[facility] - ED Test Date: 2018-10-29 Pat Name: SANDIP KAY Department: Room: - Gender: Female Keyboard Specialist: KELLY : 1995 Requested By: RENUKA Geronimo PA-C Order Number: [id number] Reading MD: Yaw Leiva Measurements Intervals [place] Rate: 65 P: 61 MS: 138 QRS: 66 QRSD: 93 T: 41 QT: 424 QTc: 443 Interpretive Statements SINUS RHYTHM WITH MARKED SINUS ARRHYTHMIA SIMILAR TO 12/31/15 Electronically Signed on 10-30-2018 5:42:27 EDT by Yaw Leiva
--- NOTE | 2018-10-30 07:44 | REP ---
Chest, single PA view: Comparison is the PA and lateral chest dated eighth 12/24/2014 The lung vela are clear. The cardiac size is normal. The tray, mediastinum, and skeletal structures are unremarkable. Impression: Negative PA chest. There is no interval change. Electronically Signed by William Lance MD 10/30/2018 07:36 A
== END 2018-10-29 22:28 | disposition home or self-care (01) ==
LOC: M ED 17:59
DX: O99.519 Diseases of the respiratory system complicating pregnancy, unspecified trimester (principal); Z3A.19 19 weeks gestation of pregnancy; Z79.899 Other long term (current) drug therapy; Z88.1 Allergy status to other antibiotic agents; Z88.8 Allergy status to other drugs, medicaments and biological substances; Z91.040 Latex allergy status

== ENCOUNTER → 2018-11-05 | Outpatient (CLI) | payer BC, MEDICARE, MEDICAID ==
[~2018-11-05] MED LIST changes: +ALBU83IN NEB; +FOLI1TAB11; +PREN29TA4 PO
--- NOTE | 2018-11-06 04:07 | REP ---
Clinical: Anatomical evaluation. Comparison: None . Findings: Examination demonstrates a single live intrauterine in cephalic presentation. motion is identified by technologist. Placenta is noted anterior and grade one without evidence for placenta previa or abruption. Amniotic fluid volume is normal. Cervix measures 4.1 cm in length and appears closed. Nuchal cord noted. Gestational age by LMP 20 weeks 1 day with SHAMAR 03/24/2019 . Gestational age by current measurements 20 weeks 4 days with SHAMAR 03/21/2019 . FHR equals 157 beats per minute. BPD 4.8 cm 20 weeks 3 days HC 18.2 cm 20 weeks 4 days AC 15.4 cm 20 weeks 4 days FL 3.3 cm 20 weeks 1 day HL 3.2 cm 20 week 6 days HC/AC ratio 1.18 Estimated weight 352 grams ( 58 percentile). Anatomical assessment demonstrates normal structures including cranium, choroid plexus, cavum, cerebellum/posterior fossa, facial features, lungs, four-chamber heart/ventricular outflow tracts, diaphragm, stomach, cord insertion/three-vessel cord, kidneys/bladder, spine, and extremities. Incidental echogenic focus in the left cardiac ventricle likely prominent chordae tendineae. Impression: 1. Single live intrauterine in cephalic presentation demonstrating appropriate interval growth. 2. Nuchal cord. 3. Anatomical assessment relatively complete/normal as described above. Electronically Signed by Josep Elizabeth MD 11/06/2018 03:59 A
== END ==
LOC: M RAD 17:39
PROVIDERS: ATTEND Specialist
DX: Z34.02 Encounter for supervision of normal first pregnancy, second trimester (principal); Z3A.20 20 weeks gestation of pregnancy

== ENCOUNTER → 2019-01-01 | Outpatient (CLI) | payer BC, MEDICARE, MEDICAID ==
[2019-01-01 18:03] LABS: HEMATOCRIT 33.5 % (36.0-47.0); HEMOGLOBIN 11.2 g/dl (12.0-15.5); MEAN CORPUSCULAR HEMOGLOBIN 31.5 pg (27.0-33.0); MEAN CORPUSCULAR HGB CONC 33.4 g/dl (32.0-36.5); MEAN CORPUSCULAR VOLUME 94.4 fl (80.0-96.0); PLATELET COUNT, AUTOMATED 171 10^3/uL (150-450); RED BLOOD COUNT 3.55 10^6/uL (4.00-5.40)
== END ==
LOC: M LAB 15:03
PROVIDERS: ATTEND Advanced Practice Midwife
DX: Z34.82 Encounter for supervision of other normal pregnancy, second trimester (principal)

== ENCOUNTER → 2019-01-20 | Outpatient (REF) | payer BC, MEDICARE, MEDICAID | LOC: M LAB REF 09:53 | PROVIDERS: ATTEND Advanced Practice Midwife | DX: Z34.83 Encounter for supervision of other normal pregnancy, third trimester (principal); Z3A.00 Weeks of gestation of pregnancy not specified ==

== ENCOUNTER → 2019-03-11 | Outpatient (CLI) | payer BC | LOC: M PLALAB 15:00 | PROVIDERS: ATTEND Advanced Practice Midwife | DX: Z34.03 Encounter for supervision of normal first pregnancy, third trimester (principal) ==

== ENCOUNTER 2019-03-28 06:31 | Outpatient (CLI) | payer BC, MEDICARE, MEDICAID ==
[~2019-03-28] VITALS: Ht 165.1 cm; Wt 69.3 kg
[2019-03-28 06:56] VITALS: BP 134/91
--- NOTE | 2019-03-28 07:11 | IPNPDOC ---
Text Note Date of Service The patient was seen on 03/28/19. NOTE Outpatient 24yo G1 SHAMAR 03/24/19. Presents at 40w4d with complaints of UC all night along with light bloody mucous. FH Cat I, 135 baseline UC 2-4 minutes apart, mild SVE 1-2/80/-2, BBOW Pt desires noninterventive . Declines augmentation at this time. Breakfast, ambulate. Consider home until UC become steadier. VS,Fishbone, I+O VS, Fishbone, I+O Vital Signs Date Time Temp Pulse Resp B/P (MAP) Pulse Ox O2 Delivery O2 Flow Rate FiO2 03/28/19 06:56 98.6 71 16 134/91 (105) Beatriz Lutz CNM Mar 28, 2019 07:11
== END 2019-03-28 08:55 | disposition home or self-care (01) ==
LOC: M LDO 06:31
PROVIDERS: ATTEND Advanced Practice Midwife
DX: O26.853 Spotting complicating pregnancy, third trimester (principal); O47.1 False labor at or after 37 completed weeks of gestation; Z3A.40 40 weeks gestation of pregnancy
CPT/HCPCS: 59025; G0378; G0463

== ENCOUNTER 2019-03-28 20:44 | Inpatient (IN) | payer BC, MEDICARE, MEDICAID ==
[~2019-03-28] VITALS: Ht 165.1 cm; Wt 69.0 kg
[2019-03-28 20:45] VITALS: BP 143/95
[2019-03-28 21:16] VITALS: BP 138/80
[2019-03-28 21:33] VITALS: BP 147/80
[2019-03-28] MEDS: LR 1,000 ML IV SCH (21:55)
[2019-03-28] MEDS ORDERED: LACTATED RINGER'S 1000 ML IV STA (21:55)
[2019-03-28 22:31] LABS: HEMATOCRIT 34.1 % (36.0-47.0); HEMOGLOBIN 11.3 g/dl (12.0-15.5); MEAN CORPUSCULAR HEMOGLOBIN 30.6 pg (27.0-33.0); MEAN CORPUSCULAR HGB CONC 33.1 g/dl (32.0-36.5); MEAN CORPUSCULAR VOLUME 92.4 fl (80.0-96.0); PLATELET COUNT, AUTOMATED 149 10^3/uL (150-450); RED BLOOD COUNT 3.69 10^6/uL (4.00-5.40); WHITE BLOOD COUNT 12.5 10^3/uL (4.0-10.0)
[2019-03-28 22:55] LABS: ALT/SGPT 10 U/L (12-78); BILIRUBIN,TOTAL 0.7 MG/DL (0.2-1.0); CREATININE FOR GFR 0.62 MG/DL (0.55-1.30); GLOMERULAR FILTRATION RATE > 60.0 (>60); LDH LACTATE DEHYDROGENASE 146 U/L (84-246)
[2019-03-28 23:18] VITALS: BP 142/84
[2019-03-29] VITALS (36 sets, daily range): BP systolic 104–161; BP diastolic 56–96
[2019-03-29] MEDS ORDERED: BUTORPHANOL 2 MG/ML INJ (J0595) IV ONE (04:30)
[2019-03-29] MEDS ORDERED: PROMETHAZINE INJ 25 MG/ML VIAL (J2550) IV ONE (04:30)
[2019-03-29] MEDS: LR 1,000 ML IV SCH (05:55)
[2019-03-29] MEDS ORDERED: FENTANYL 2MCG/ML ROPIVACAINE 0.2% IN 0.9% NACL 100ML IVBAG As Ordered ONE (06:23)
[2019-03-29] MEDS: FENTANYL/ROPIVACAINE/NACL BAG 100 ML EPIDURAL SCH ×2 (07:24→15:14)
[2019-03-29] MEDS ORDERED: NALOXONE INJ 0.4 MG/1 ML VIAL (J2310) IV PRN (08:00)
[2019-03-29] MEDS ORDERED: EPIDURAL/PCA KEYS XX PRN (08:00)
[2019-03-29] MEDS ORDERED: EPIDURAL COMMENT XX SCH (08:00)
[2019-03-29] MEDS ORDERED: ONDANSETRON 4MG/2ML VIAL (J2405) IV PRN ×2 (08:00→19:15)
[2019-03-29] MEDS ORDERED: diphenhydrAMINE INJ 50MG/ML VIAL (J1200) IV PRN (08:00)
[2019-03-29] MEDS ORDERED: LACTATED RINGER'S 1000 ML IV PRN (08:00)
[2019-03-29] MEDS ORDERED: REFRIGERATOR IV KEYS XX PRN (08:00)
[2019-03-29] MEDS ORDERED: ePHEDrine SULFATE 25 MG/5 ML(5MG/ML) SYRINGE IV PRN (08:00)
[2019-03-29] MEDS ORDERED: OXYTOCIN 30 UNITS IN 0.9% NaCl 500ML IV BAG (J2590) As Ordered ONE (15:10)
[2019-03-29] MEDS ORDERED: LR 1,000 ML IV SCH (19:05)
[2019-03-29] MEDS ORDERED: OXYTOCIN DRIP 30 UNITS in IV 1 EA IV SCH (19:05)
[2019-03-29] MEDS ORDERED: DIBUCAINE 1% OINTMENT 30GM TOP PRN (19:15)
[2019-03-29] MEDS ORDERED: PROMETHAZINE 25 MG TAB PO PRN (19:15)
[2019-03-29] MEDS ORDERED: RHOGAM 300 MCG (1500 IU) INJ (J2790) IM SCH (19:15)
[2019-03-29] MEDS ORDERED: DOCUSATE SODIUM 100 MG CAP PO PRN (19:15)
[2019-03-29] MEDS ORDERED: METHYLERGONOVINE MALEATE 0.2 MG TAB PO PRN (19:15)
[2019-03-29] MEDS ORDERED: ACETAMINOPHEN 500 MG TAB PO PRN (19:15)
[2019-03-29] MEDS ORDERED: MEASLES,MUMPS,RUBELLA VACCINE INJ (MMR-II) (90707) SC SCH (19:15)
[2019-03-29] MEDS: IBUPROFEN 600 MG TAB PO PRN (20:31)
[2019-03-30] MEDS: ACETAMINOPHEN TAB 650MG DOSE (2X325MG) PO PRN ×2 (03:03→09:06)
[2019-03-30] MEDS: IBUPROFEN 600 MG TAB PO PRN (04:31)
[2019-03-30 06:00] VITALS: BP 95/51
[2019-03-30] MEDS: PRENATAL VITAMINS CHEWABLE TABLET PO SCH (09:05)
[2019-03-30] MEDS: IBUPROFEN 800 MG TAB PO PRN ×2 (10:57→17:45)
[2019-03-30] MEDS: FOLIC ACID 1 MG TAB PO SCH (11:15)
[2019-03-30 13:49] VITALS: BP 118/70
[2019-03-30 18:15] VITALS: BP 105/61
[2019-03-31] MEDS: IBUPROFEN 600 MG TAB PO PRN (04:17)
[2019-03-31 06:00] VITALS: BP 113/68
[2019-03-31] MEDS ORDERED: ACET-683 PO (07:31)
[2019-03-31] MEDS ORDERED: IBUP80TA PO (07:31)
[2019-03-31] MEDS ORDERED: FOLIC ACID 1 MG TAB PO SCH (09:00)
[2019-03-31] MEDS: FOLIC ACID 1 MG TAB PO SCH (09:31)
[2019-03-31] MEDS: PRENATAL VITAMINS CHEWABLE TABLET PO SCH (09:31)
[2019-03-31] MEDS: IBUPROFEN 800 MG TAB PO PRN (11:43)
== END 2019-03-31 12:30 | disposition home or self-care (01) | DRG 560 ==
LOC: M LDO 20:44 → M LDI 21:47 → M OBS 03-29 20:30
PROVIDERS: ADMIT Obstetrics & Gynecology; ATTEND Obstetrics & Gynecology
PROC: 10E0XZZ Delivery of Products of Conception, External Approach (ICD-10-PCS; principal; 2019-03-29)
PROC: 10907ZC Drainage of Amniotic Fluid, Therapeutic from Products of Conception, Via Natural or Artificial Opening (ICD-10-PCS; 2019-03-29)
PROC: 0HQ9XZZ Repair Perineum Skin, External Approach (ICD-10-PCS; 2019-03-29)
DX: O48.0 Post-term pregnancy (principal); Z3A.40 40 weeks gestation of pregnancy; Z37.0 Single live birth; O69.81X0 Labor and delivery complicated by cord around neck, without compression, not applicable or unspecified; O70.0 First degree perineal laceration during delivery

== ENCOUNTER → 2019-04-22 | Outpatient (CLI) | payer BC, MEDICAID ==
[~2019-04-22] MED LIST changes: +ACET-683 PO; +IBUP80TA PO
[2019-04-22 14:02] LABS: FREE T4 0.9 NG/DL (0.76-1.46); THYROID STIMULATING HORMONE 0.762 uIU/ML (0.358-3.740)
[2019-04-22 14:05] LABS: TOTAL 25(OH) VITAMIN D 26.6 NG/ML (30.0-100.0)
== END ==
LOC: M PLALAB 10:48
PROVIDERS: ATTEND Advanced Practice Midwife
DX: R10.2 Pelvic and perineal pain (principal); F32.9 Major depressive disorder, single episode, unspecified

== ENCOUNTER 2020-01-18 09:41 | Day surgery (SDC) | payer BC, MEDICARE, MEDICAID ==
[~2020-01-18] VITALS: Ht 162.6 cm; Wt 52.6 kg
[~2020-01-18 09:41] MED LIST changes: -FOLI1TAB11; +FOLI1TAB11 PO
[2020-01-18] MEDS ORDERED: NS 1,000 ML IV ONE (10:00)
[2020-01-18] MEDS ORDERED: fentaNYL 100 MCG/2 ML INJECTION (J3010) IV ONE (10:15)
[2020-01-18] MEDS ORDERED: ONDANSETRON 4MG/2ML VIAL IV ONE (10:15)
[2020-01-18 10:31] LABS: BASO # 0.1 10^3/uL (0.0-0.2); BASO % 0.4 % (0.0-1.0); EOS # 0.1 10^3/uL (0.0-0.5); EOS % 0.8 % (0.0-3.0); HEMATOCRIT 38.3 % (36.0-47.0); HEMOGLOBIN 12.5 g/dl (12.0-15.5); LYMPH # 2.3 10^3/uL (1.5-5.0); LYMPH % 19.4 % (24.0-44.0); MEAN CORPUSCULAR HEMOGLOBIN 30.2 pg (27.0-33.0); MEAN CORPUSCULAR HGB CONC 32.6 g/dl (32.0-36.5); MEAN CORPUSCULAR VOLUME 92.5 fl (80.0-96.0); MONO # 0.8 10^3/uL (0.0-0.8); MONO % 6.6 % (0.0-5.0); NEUTROPHILS # 8.5 10^3/uL (1.5-8.5); NEUTROPHILS % 72.5 % (36.0-66.0); PLATELET COUNT, AUTOMATED 173 10^3/uL (150-450); RED BLOOD COUNT 4.14 10^6/uL (4.00-5.40); WHITE BLOOD COUNT 11.7 10^3/uL (4.0-10.0)
[2020-01-18] MEDS ORDERED: PRENTAB9 PO (11:17)
[2020-01-18] MEDS ORDERED: ACET-897 PO (11:17)
[2020-01-18] MEDS ORDERED: D31000TA2 PO (11:17)
--- NOTE | 2020-01-18 11:22 | REPVR ---
PROCEDURE INFORMATION: Exam: US First Trimester, Transabdominal and US Duplex Artery or Vein, Ovaries, Limited Exam date and time: 01/18/2020 10:36 AM Age: 24 years old Clinical indication: complicated by abdominal or pelvic pain; Generalized abdominal pain; Second trimester; Gestational age or lmp: 15 week 3 days; ; Additional info: Vaginal bleeding, dxed with twin demise at 11 wks, wanted to deliver naturally. Presents with severe pelvic pain and cramping today at the er TECHNIQUE: Imaging protocol: Real-time transabdominal obstetrical ultrasound of the maternal pelvis and a first trimester , less than 14 weeks 0 days, with image documentation. Real-time duplex ultrasound scan of the arterial or venous flow of the ovaries with B-mode, color Doppler flow and spectral waveform analysis, limited Duplex. COMPARISON: No relevant prior studies available. FINDINGS: Gestation: A 2.2 x 1.1 cm anechoic focus at the external os/vagina could represent remnants of gestational sac. MATERNAL: Uterus: The uterus measures 11.2 x 6.1 x 7.1 cm. It is anteverted and without demonstrated lesion. The endometrium is thickened up to 4.1 cm and somewhat vascular. Right adnexa: The right ovary measures 4.2 x 1.2 cm and appears unremarkable. There is normal internal arterial flow. Peak systolic velocity 23.7 cm/s, end-diastolic velocity 9.3 cm/s, resistive index 0.61. Left adnexa: The left ovary measures 2.9 x 1.7 x 1.9 cm. And appears unremarkable. There is normal internal arterial flow. Peak systolic velocity 11.3 cm/s, end-diastolic velocity 4.7 cm/s, resistive index 0.59. Intraperitoneal space: No significant free fluid is demonstrated, nor is any extraovarian adnexal mass. IMPRESSION: 1. Thickened, somewhat vascular endometrium, suggesting retained products of conception. 2.2 cm anechoic focus at the external os/vagina could represent remnants of gestational sac. 2. Unremarkable ovaries with normal internal arterial flow. Electronically signed by: Conor Monroe On 01/18/2020 11:22:00 AM
[2020-01-18] MEDS ORDERED: LR 1,000 ML IV SCH ×2 (11:23→14:30)
[2020-01-18] MEDS ORDERED: DOXYCYCLINE HYCLATE 100 MG in D5W MINI-BAG PLUS 100 ML IV ONE (11:30)
[2020-01-18] MEDS ORDERED: DOXYCYCLINE HYCLATE 100MG TABLET PO ONE (11:30)
[2020-01-18] MEDS ORDERED: LIDOCAINE 1% SDV 30ML VIAL As Ordered ONE (12:24)
[2020-01-18] MEDS ORDERED: SILVER NITRATE APPLICATOR As Ordered ONE (12:25)
[2020-01-18] MEDS ORDERED: fentaNYL 100 MCG/2 ML INJECTION (J3010) As Ordered ONE (12:28)
[2020-01-18] MEDS ORDERED: LIDOCAINE 2% 100MG/5ML SDV (FOR ANES.) As Ordered ONE (12:28)
[2020-01-18] MEDS ORDERED: MIDAZOLAM INJ 2MG/2ML VIAL (J2250 PER 1MG) As Ordered ONE (12:28)
[2020-01-18] MEDS ORDERED: propofoL 200 MG/20 ML VIAL As Ordered ONE (12:28)
[2020-01-18] MEDS ORDERED: SUCCINYLCHOLINE 100 MG/5 ML SYRINGE (J0330) As Ordered ONE (12:29)
[2020-01-18] MEDS ORDERED: ROCURONIUM BROMIDE 50 MG/5 ML VIAL As Ordered ONE (12:31)
[2020-01-18] MEDS ORDERED: DOXYCYCLINE HYCLATE 100MG/10ML VIAL As Ordered ONE (12:43)
[2020-01-18] MEDS ORDERED: dexameTHASONE 4 MG/ML 1ML VIAL (J1100 PER 1MG) As Ordered ONE (13:22)
[2020-01-18] MEDS ORDERED: ePHEDrine SULFATE 25 MG/5 ML(5MG/ML) SYRINGE As Ordered ONE (13:23)
[2020-01-18] MEDS ORDERED: PHENYLephrine HCL 500 MCG/5 ML (100MCG/ML) SYRINGE (J2370) As Ordered ONE (13:23)
[2020-01-18] MEDS ORDERED: METOCLOPRAMIDE INJ 10MG/2ML VIAL (J2765 PER 1) As Ordered ONE (13:31)
[2020-01-18] MEDS ORDERED: ONDANSETRON 4MG/2ML VIAL As Ordered ONE (13:31)
[2020-01-18] MEDS ORDERED: ACETAMINOPHEN 1000MG 100ML IV BTL (OFIRMEV) (J0131 PER 10MG) As Ordered ONE (13:32)
[2020-01-18] MEDS ORDERED: METHYLERGONOVINE MALEATE 0.2 MG/ML VIAL (J2210) As Ordered ONE (13:35)
[2020-01-18] MEDS ORDERED: oxyCODONE 5MG TAB PO PRN (14:30)
[2020-01-18] MEDS ORDERED: ONDANSETRON 4MG/2ML VIAL IV PRN (14:30)
[2020-01-18] MEDS ORDERED: fentaNYL 100 MCG/2 ML INJECTION (J3010) IV PRN (14:30)
[2020-01-18 16:10] VITALS: BP 107/63
--- NOTE | 2020-01-26 08:48 | RO ---
DATE OF OPERATION: 01/18/2020 PREOPERATIVE DIAGNOSIS: Incomplete . POSTOPERATIVE DIAGNOSIS: Incomplete . PROCEDURE: Suction dilatation and curettage, examination under anesthesia. SURGEON: Dr. Asuncion Cabrera JUNIOR PROJECT COORDINATOR: None. ANESTHESIA: General endotracheal anesthesia. ESTIMATED BLOOD LOSS: 250 mL. INTRAVENOUS FLUIDS: 200 mL of lactated Ringer's. URINE OUTPUT: Not measured. COMPLICATIONS: None. INDICATIONS: Joyce is a 24-year-old -0-1-1 who was noted to have monochorionic/diamniotic (mono/di) twin gestation early in but unfortunately at nine weeks was found to have no cardiac activity on either of the twins in the office. She was counseled on all of the options of management and strongly desired expectant management. So, at approximately 11 weeks gestation she presented to the emergency room with very heavy bleeding stating that she had soaked a heavy pad within 10 minutes and when she was in the ER, she was evaluated having blood pressure 80s over 40s and she was resuscitated with IV fluids. She was then counseled on D and C for treatment of her incomplete . DESCRIPTION OF PROCEDURE: Patient was brought to the OR and general anesthesia was administered. She was placed in the dorsal lithotomy position. She was prepped and draped in usual sterile fashion. She was given 100 mg of IV doxycycline prophylactically. Speculum was placed in the vagina and immediately was noted a large bulging mass within the cervix. I placed a tenaculum on the anterior portion of the cervix and then used a ring forceps to grasp the large mass of tissue and gently tease it out of the cervix. It came out in several portions and on the last portion, once that was removed from the lower uterine segment, she started having very heavy bleeding. At that point, I inserted a 9 mm suction curette to the fundus of the uterus and it was activated. I then performed a few passes of suction curettage to remove the remaining tissue from within the uterus. Anesthesia gave 0.2 mg Methergine IM and I performed firm bimanual massage to address the bleeding. I then performed one more pass of the suction curettage and there was no more tissue within the uterus noted, so I used a sharp curettage within the uterus very gently obtaining a good cry in all quadrants. I then did one more pass of the suction curettage to remove the clot within the uterus and then again performed a very firm bimanual massage and at that point there was cessation of bleeding. The tenaculum had been removed and then I removed the speculum from the vagina. Vaginal sweep revealed nothing retained in the vagina. The tissue sample will be sent to pathology. Patient tolerated the procedure well and was taken to the recovery room in stable condition. All counts were correct times 2. MTDD
== END 2020-01-18 16:15 | disposition home or self-care (01) ==
LOC: M ED 09:41 → M SDC 11:00
PROVIDERS: ATTEND Obstetrics & Gynecology
DX: O02.1 Missed abortion (principal); O10.911 Unspecified pre-existing hypertension complicating pregnancy, first trimester; Z88.8 Allergy status to other drugs, medicaments and biological substances; Z91.040 Latex allergy status; Z88.1 Allergy status to other antibiotic agents; Z79.51 Long term (current) use of inhaled steroids; O99.511 Diseases of the respiratory system complicating pregnancy, first trimester
CPT/HCPCS: 59820; 76801; 80047; 84702; 85025; 86850; 86900; 86901; 88305; 93976; 96361; 96374; 96375; 99285; J0131; J0330; J1100; J2210; J2250; J2370; J2405; J2765; J3010; U0002

== ENCOUNTER → 2020-02-03 | Outpatient (REF) | payer BC, MEDICARE, MEDICAID ==
[~2020-02-03] MED LIST changes: +ACET-897 PO; +D31000TA2 PO; +PRENTAB9 PO
== END ==
LOC: M PLALAB 12:10
PROVIDERS: ATTEND Obstetrics & Gynecology
DX: R23.8 Other skin changes (principal)

== ENCOUNTER → 2020-04-27 | Outpatient (REF) | payer BC, MEDICARE, MEDICAID | LOC: M PLALAB 11:13 | PROVIDERS: ATTEND Advanced Practice Midwife | DX: O36.80X0 Pregnancy with inconclusive fetal viability, not applicable or unspecified (principal) ==

== ENCOUNTER → 2020-04-29 | Outpatient (REF) | payer BC, MEDICARE, MEDICAID | LOC: M PLALAB 10:53 | PROVIDERS: ATTEND Advanced Practice Midwife | DX: O36.80X0 Pregnancy with inconclusive fetal viability, not applicable or unspecified (principal) ==

== ENCOUNTER → 2020-05-19 | Outpatient (REF) | payer BC, MEDICARE, MEDICAID ==
[2020-05-19 13:44] LABS: HEMATOCRIT 35.7 % (36.0-47.0); HEMOGLOBIN 11.7 g/dl (12.0-15.5); MEAN CORPUSCULAR HGB CONC 32.8 g/dl (32.0-36.5); MEAN CORPUSCULAR VOLUME 91.5 fl (80.0-96.0); PLATELET COUNT, AUTOMATED 152 10^3/uL (150-450); WHITE BLOOD COUNT 5.4 10^3/uL (4.0-10.0)
[2020-05-19 14:48] LABS: HEPATITIS C VIRUS ABY INDEX < 0.0 INDEX (<0.8); HIV 1&2 SCREEN CENTAUR NEGATIVE (NEGATIVE)
[2020-05-19 15:05] LABS: CHLAMYDIA DNA AMPLIFICATION NEGATIVE (NEGATIVE); GC DNA AMPLIFICATION NEGATIVE (NEGATIVE)
== END ==
LOC: M PLALAB 10:46
PROVIDERS: ATTEND Advanced Practice Midwife
DX: Z34.91 Encounter for supervision of normal pregnancy, unspecified, first trimester (principal); Z3A.08 8 weeks gestation of pregnancy

== ENCOUNTER → 2020-06-02 | Outpatient (REF) | payer BC, MEDICARE, MEDICAID | LOC: M PLALAB 10:47 | PROVIDERS: ATTEND Advanced Practice Midwife | DX: Z12.4 Encounter for screening for malignant neoplasm of cervix (principal) ==

== ENCOUNTER → 2020-07-05 | Outpatient (REF) | payer BC, MEDICARE, MEDICAID ==
[2020-07-05 18:37] LABS: APPEARANCE, URINE CLEAR (CLEAR); BACTERIA, URINE AUTO NEGATIVE (NEGATIVE); BILIRUBIN, URINE AUTO NEGATIVE (NEGATIVE); BLOOD, URINE BLOOD NEGATIVE (NEGATIVE); COLOR, URINE YELLOW (YELLOW); GLUCOSE, URINE (UA) AUTO NEGATIVE (NEGATIVE); KETONE, URINE AUTO NEGATIVE (NEGATIVE); LEUKOCYTE ESTERASE, URINE AUTO NEGATIVE (NEGATIVE); MUCUS, URINE SMALL (NEGATIVE); NITRITE, URINE AUTO NEGATIVE (NEGATIVE); PROTEIN, URINE AUTO NEGATIVE (NEGATIVE); RBC, URINE AUTO 0 /HPF (0-3); SPECIFIC GRAVITY URINE AUTO 1.011 (1.002-1.035); SQUAMOUS EPITHELIAL CELL UR AU 0 /HPF (0-6); UROBILINOGEN, URINE AUTO 0.2 mg/dL (0.0-2.0); WBC, URINE AUTO 0 /HPF (0-3)
== END ==
LOC: M SFHCWAGY 16:44
PROVIDERS: ATTEND Obstetrics & Gynecology
DX: R10.9 Unspecified abdominal pain (principal)

== ENCOUNTER → 2020-08-02 | Outpatient (CLI) | payer BC, MEDICARE, MEDICAID ==
--- NOTE | 2020-08-02 09:09 | REP ---
INDICATION: ANATOMY COMPARISON: None. TECHNIQUE: Transabdominal obstetrical ultrasound with color Doppler evaluation. FINDINGS: Examination demonstrates a single live intrauterine in breech presentation. motion is identified by technologist. Placenta is noted anterior and grade 1 without evidence for placenta previa or abruption. Amniotic fluid volume is normal. Cervix measures 3.9 cm in length and appears closed. Nuchal cord noted.. Gestational age by LMP 18 weeks 5 days with SHAMAR 12/29/2020. Gestational age by current measurements 18 weeks 4 days with SHAMAR 12/30/2020. FHR equals 157 beats per minute. BPD: 4.2 cm at 18 weeks 5 days HC: 15.6 cm at 18 weeks 4 days AC: 12.9 cm at 18 weeks 3 days FL: 2.7 cm at 18 weeks 3 days HL: 2.8 cm at 18 weeks 6 days HC/AC: 1.21 Estimated weight 240 grams (31stpercentile). Anatomical assessment demonstrates normal structures including cranium, cavum, cerebellum/posterior fossa, facial features, lungs, four-chamber heart/ventricular outflow tracts, diaphragm, stomach, cord insertion/three-vessel cord, kidneys/bladder, and extremities. Small bilateral choroid plexus cysts are identified. Evaluation of the spine is limited due to positioning. IMPRESSION: Single live intrauterine in breech presentation demonstrating appropriate estimated weight. Anatomical limitations as noted above warrant follow-up. Nuchal cord noted. <Electronically signed by Josep Elizabeth > 08/02/20 0962
== END ==
LOC: M WHC 07:27
PROVIDERS: ATTEND Advanced Practice Midwife
DX: Z36.89 Encounter for other specified antenatal screening (principal); Z3A.18 18 weeks gestation of pregnancy

== ENCOUNTER → 2020-08-23 | Outpatient (CLI) | payer BC, MEDICARE, MEDICAID ==
--- NOTE | 2020-08-24 07:02 | REP ---
INDICATION: F/U ANATOMY COMPARISON: 08/02/2020 TECHNIQUE: Transabdominal obstetrical ultrasound with color Doppler evaluation. FINDINGS: Examination demonstrates a single live intrauterine in cephalic presentation. motion is identified by technologist. Placenta is noted anterior and there grade 1 without evidence for placenta previa or abruption. Amniotic fluid volume is normal. Cervix measures 3.2 cm in length and appears closed. Anechoic collection at the cord insertion to the placenta likely representing venous Tamez. Gestational age by LMP and 1st U/S 21 weeks 5 days with SHAMAR 12/29/2020. Gestational age by current measurements 21 weeks 2 days with SHAMAR 01/01/2021. FHR equals 154 beats per minute. Estimated weight 420 grams (30thpercentile). Anatomical assessment demonstrates normal structures including spine and normal bilateral choroid plexus (cysts have resolved). IMPRESSION: 1. In conjunction with prior examination anatomical assessment is complete and normal. Choroid plexus cysts have resolved. 2. Suspected venous Tamez at the placenta cord insertion. <Electronically signed by Josep Elizabeth > 08/24/20 0602
== END ==
LOC: M WHC 10:32
PROVIDERS: ATTEND Advanced Practice Midwife
DX: Z36.89 Encounter for other specified antenatal screening (principal); Z3A.21 21 weeks gestation of pregnancy

== ENCOUNTER → 2020-09-15 | Outpatient (CLI) | payer BC, MEDICARE, MEDICAID ==
--- NOTE | 2020-09-15 14:00 | REP ---
INDICATION: SUBCUTANEOUS CYST RIGHT LOWER BACK. COMPARISON: None. TECHNIQUE: Real-time sonographic evaluation of right lower back soft tissues performed at the site of a reported palpable abnormality. FINDINGS: No cystic or solid nodule is seen. IMPRESSION: No sonographic evidence of cystic or solid nodule right lower back soft tissues at the site of the reported palpable lump. Clinical correlation recommended. If there is continued clinical concern for a mass, then MRI of this region with and without contrast is recommended. <Electronically signed by William Avila > 09/15/20 0163
== END ==
LOC: M RAD 13:02
PROVIDERS: ATTEND Physician Assistant
DX: L72.9 Follicular cyst of the skin and subcutaneous tissue, unspecified (principal)

== ENCOUNTER 2020-09-19 14:38 | Emergency (ER) | payer BC, MEDICARE, MEDICAID ==
[~2020-09-19] VITALS: Ht 165.1 cm; Wt 59.8 kg
[2020-09-19 14:38] VITALS: BP 113/60
== END 2020-09-19 17:49 | disposition left against medical advice (07) ==
LOC: M ED 14:38
DX: Z53.21 Procedure and treatment not carried out due to patient leaving prior to being seen by health care provider (principal)

== ENCOUNTER → 2020-10-25 | Outpatient (REF) | payer BC, MEDICARE, MEDICAID | LOC: M LAB REF 18:46 | PROVIDERS: ATTEND Surgery | DX: D17.1 Benign lipomatous neoplasm of skin and subcutaneous tissue of trunk (principal) ==

== ENCOUNTER → 2020-11-02 | Outpatient (CLI) | payer BC, MEDICARE, MEDICAID ==
--- NOTE | 2020-11-02 09:59 | REP ---
INDICATION: , ABD PAIN. COMPARISON: None. TECHNIQUE: Real-time sonographic evaluation of right upper quadrant performed. FINDINGS: The gallbladder demonstrates no evidence of intraluminal sludge or calculi, wall thickening or pericholecystic fluid. There is no intrahepatic or extrahepatic biliary dilatation, common bile duct measures 3 mm in maximum diameter. The liver demonstrates homogeneous echotexture with no gross mass. The pancreas demonstrates homogeneous echotexture with no gross mass. The right kidney demonstrates no hydronephrosis, with a normal size of 10.6 cm in length. No free fluid is seen. Intrauterine fetus demonstrates a heart rate of 147 beats per minute, in breech position. IMPRESSION: Negative right upper quadrant ultrasound. <Electronically signed by William Avila > 11/02/20 0959
== END ==
LOC: M RAD 09:05
PROVIDERS: ATTEND Advanced Practice Midwife
DX: K81.0 Acute cholecystitis (principal)

== ENCOUNTER 2020-11-08 20:47 | Outpatient (CLI) | payer BC, MEDICARE, MEDICAID ==
[~2020-11-08] VITALS: Ht 162.6 cm; Wt 64.7 kg
[2020-11-08 21:05] VITALS: BP 103/64
--- NOTE | 2020-11-08 22:38 | IPNPDOC ---
Obstetrical Progress Note Date of Service Nov 08, 2020 Subjective Subjective/HPI: 25-year-old at 32+5 weeks' gestation. Presents today complaining of uterine cramping/contraction/pelvic discomfort. This all was preceded by having diarrhea. Her symptoms completely subsided approximately an hour ago. No longer cramping/josue. Denies any vaginal bleeding or loss of fluid. Reports regular movement. Denies headache, visual changes, shortness of breath, chest pain. course uncomplicated. Her care is being done managed by Toan Reveles CNM. She plans on having an assisted home . PMH/SH: Depression/anxiety, borderline personality disorder, PTSD OB history: at term x1, SAB x1 Objective: Normotensive. Normal heart rate. Afebrile Abdomen soft, nontender, nondistended. Uterine fundus , nontender. Extremities nonedematous, nontender Pelvic: no pooling, no vaginal bleeding, no abnormal discharge or foul odor. Sterile vaginal/cervical exam reveals a closed long thick cervix. EFM: Reactive, moderate variability, no decelerations [place]: No contractions detected on the monitor Assessment/plan: 25 year-old at 32+5 weeks' gestation. No evidence of premature ruptured membranes, active labor, advanced cervical dilation. Current maternal and condition is reassuring. -Routine third trimester precautions were reviewed -Follow-up with [facility] as scheduled Objective Vital Signs Date Time Temp Pulse Resp B/P (MAP) Pulse Ox O2 Delivery O2 Flow Rate FiO2 11/08/20 21:15 98.0 11/08/20 21:05 61 103/64 (77) Room Air CADY DING DO Nov 08, 2020 22:38
== END 2020-11-08 22:40 | disposition home or self-care (01) ==
LOC: M LDO 20:47
PROVIDERS: ATTEND Obstetrics & Gynecology
DX: O47.03 False labor before 37 completed weeks of gestation, third trimester (principal); Z3A.32 32 weeks gestation of pregnancy; O26.893 Other specified pregnancy related conditions, third trimester; R25.2 Cramp and spasm; R19.7 Diarrhea, unspecified; O99.343 Other mental disorders complicating pregnancy, third trimester; F32.9 Major depressive disorder, single episode, unspecified; F41.9 Anxiety disorder, unspecified; F43.10 Post-traumatic stress disorder, unspecified; F60.3 Borderline personality disorder; Z88.1 Allergy status to other antibiotic agents; Z88.8 Allergy status to other drugs, medicaments and biological substances; Z91.040 Latex allergy status
CPT/HCPCS: 59025; G0378; G0463

== ENCOUNTER → 2020-12-09 | Outpatient (CLI) | payer BC, MEDICARE, MEDICAID ==
--- NOTE | 2020-12-09 14:53 | REP ---
INDICATION: WEIGHT,GROWTH,POSITION CHECK COMPARISON: 08/23/2020 TECHNIQUE: Transabdominal obstetrical ultrasound with color Doppler evaluation. FINDINGS: Examination demonstrates a single live intrauterine in breech presentation. motion is identified by technologist. Placenta is noted anterior and grade 2 without evidence for placenta previa or abruption. Amniotic fluid volume is normal. Selected gestational age: 37 weeks 1 day with SHAMAR 12/29/2020. Gestational age by current measurements 36 weeks 3 days with SHAMAR 01/03/2021. FHR equals 120 beats per minute. Estimated weight 2953 grams (40thpercentile). ALESIA: 6.5 cm (7.5-24.4). Umbilical artery SD ratio: 2.52 (1.59-3.42). IMPRESSION: Single live advanced gestation in cephalic presentation. Appropriate interval growth. Oligohydramnios. <Electronically signed by Josep Elizabeth > 12/09/20 5070
== END ==
LOC: M WHC 13:31
PROVIDERS: ATTEND Advanced Practice Midwife
DX: O41.00X0 Oligohydramnios, unspecified trimester, not applicable or unspecified (principal)

== ENCOUNTER → 2020-12-15 | Outpatient (CLI) | payer BC, MEDICARE, MEDICAID ==
--- NOTE | 2020-12-16 06:22 | REP ---
INDICATION: POSITION ALESIA COMPARISON: 12/09/2020 TECHNIQUE: Transabdominal obstetrical ultrasound with color Doppler evaluation. FINDINGS: Examination demonstrates a single live intrauterine in cephalic presentation. motion is identified by technologist. Placenta is noted anterior and grade 1 without evidence for placenta previa or abruption. Amniotic fluid volume is normal. Cervix measures 3.2 cm in length and appears closed.. Selected gestational age: 30 weeks 0 days with SHAMAR 12/29/2020. FHR equals 127 beats per minute. ALESIA: 11.1 cm IMPRESSION: Single live advanced gestation in cephalic presentation. Amniotic fluid volume is normal. <Electronically signed by Josep Elizabeth > 12/16/20 0618
== END ==
LOC: M WHC 14:30
PROVIDERS: ATTEND Advanced Practice Midwife
DX: Z36.2 Encounter for other antenatal screening follow-up (principal); Z3A.30 30 weeks gestation of pregnancy

== ENCOUNTER 2021-03-17 | Emergency (ER) | payer BC, MEDICARE, MEDICAID, OTHER ==
[~2021-03-17] VITALS: Ht 162.6 cm; Wt 62.0 kg
--- OUTSIDE RECORDS SUMMARY | 2021-03-17 00:10 | CCD | Continuity of Care Document ---
Author Author Joyce BROWNE MD Organization Unknown Address [address] [place] [id number] Phone [phone] Care Team Providers Care Agile Test Lead Name Role Phone Kisha Sanchez P.A.-C. AUTM Problems Active Problems Provider Date Allergic asthma without status asthmaticus Melba Jurado CNM Onset: 08/20/2018 Social History Type Date Description Comments Sex Unknown ETOH Use Denies alcohol use Tobacco Use Start: Unknown End: Patient is a former smoker 1/2 ppd. Quit in 2017 Recreational Drug Use Former Drug User history o f marijuanna use SHAMAR: 03/24/2019 Estimated Date of Delivery Based on Final SHAMAR Allergies and adverse reactions Active Allergies Criticality Reaction | Severity Comments Date Lamictal Unable to assess criticality 08/11/2018 Xanax Unable to assess criticality 08/11/2018 Adhesives Unable to assess criticality 08/11/2018 Latex Unable to assess criticality 08/11/2018 Azithromycin Unable to assess criticality 08/11/2018 Alprazolam Unable to assess criticality Difficulty breathing 09/22/2020 Medications Active Medications SIG Qnty Indications Ordering Provide r Date Folate 1600mcg Tablet 1tab po qd Unknown Vitamin D3 2200Iu Tablet 1tab po qd Unknown Calcium 500/D [id number] Tablets 1 qd Unknown Clonazepam 0.5mg Tablets 1 ta b prn Unknown Placenta Caps 1 qd Unknown Immunizations Description No Information Available Vital Signs Date Vital Result Comment 02/07/2021 9:49am BP Systolic 100 mmHg BP Diastolic 65 mmHg Heart Rate 65 /min Body Temperature 98.2 F Height 64.75 inches 5'4.75" Transfer Body Weight 120 lb 11/03/2020 3:25pm BP Systolic 112 mmHg BP Diastolic 71 mmHg Heart Rate 63 /min Height 64.75 inches 5'4.75" Transfer Body Weight 120 lb Results Test Acquired Date Facility Test Result H/L Range Note Laboratory test finding 10/25/2020 [facility] [place] [address] [phone] Pathology Request For Service (SEE NOTE) 1 1 FINAL DIAGNOSIS Soft tissue, right lower back, excision: Mature fibroadipose tissue, consistent with lipoma. 10/27/2020 - 1114 CLINICAL DIAGNOSIS Lipoma right lower back 10/26/2020 - 1330 GROSS DIAGNOSIS Received in formalin labeled "right lower back" and consists of multiple fragments of yellow-martin fibroadipose tissue measuring 4.5 x 2.8 x 1.4 cm. in aggregate. Water F[employer] Instructor sections in one block. -SVY 10/26/2020 - 1330 Signed JUANITA MOREJON MD 10/27/2020 1434 Procedures Date Code Description Status 02/07/2021 93717 Office/Outpatient Established Lo w MDM 20-29 Min Completed 10/25/2020 16497 Office/Outpatient Established Lo w MDM 20-29 Min Completed 10/25/2020 38455 Excision Tumor Soft Tissue Back/ Flank Completed 09/22/2020 51592 Office/Outpatient Established Lo w MDM 20-29 Min Completed Medical Devices Description No Information Available Encounters Type Date Location Provider Dx Diagnosis Office Visit 02/07/2021 9:40a [facility] Anirudh Browne MD R59.0 Localized enlarged lymph nod es Office Visit 11/03/2020 3:15p [facility] Anirudh Browne MD D17.1 Benign lipomatous neoplasm o f skin, subcu of trunk Z48.817 Encntr for surgical aftcr fo l surgery on the skin, subcu Office Visit 10/25/2020 1:00p [facility] Anirudh Browne MD D17.1 Benign lipomatous neoplasm o f skin, subcu of trunk Office Visit 09/22/2020 2:15p [facility] Anirudh Browne MD D17.1 Benign lipomatous neoplasm o f skin, subcu of trunk Assessments Date Code Description Provider 02/07/2021 R59.0 Axillary lymphadenopathy Gustavo Browne MD 11/03/2020 D17.1 Lipoma of skin and subcutaneous tissue of trunk Gustavo Browne MD 11/03/2020 Z48.817 Encounter for surgic al aftercare following surgery on the skin and subcutaneous tissue Gustavo Browne MD 10/25/2020 D17.1 Lipoma of skin and subcutaneous tissue of trunk Gustavo Browne MD 09/22/2020 D17.1 Lipoma of skin and subcutaneous tissue of trunk Gustavo Browne MD Plan of Treatment 02/07/2021 - Gustavo Browne MD* R59.0 Axillary lymphadenopathy* Comments:* I had a long talk with her trying to figure out what the exact concern has. She reports 2 things. One is pain in her left axilla. She is currently breast-feeding. She denies that the baby is latching on one breast or the other. She denies any infection on her breast. The other problem seems to be that the left axillary fold is more prominent than the right. She tells me she has a concern that she does not want to get because she is self- conscious on the left axilla that she will not be able to wear the wedding dress that she wants to wear because of that. With regards to the pain in the left axilla, probably more related to her breast-feeding and the fullness may be off her . I do not see any evidence of any infection or inflammation on the left breast. The axillary rickie basin does seems to be more prominent than the left but there is no definite primarily enlarged or abnormally enlarged lymph nodes that I could feel. She does report some tenderness when I was examining the area. No signs of prior hidradenitis. I reassured her on this and I do not think it needs to be excised or surgically removed. I warned her that removal of that axillary basin may predispose her to lymphedema. With regards to the prominent axillary fold, I think this is more cosmetic than anything and she can discuss this with a plastic surgeon to "contour" the area. She is pretty adamant that she is having symptoms from the lump on her axilla that it smells worse than the right side and it is hurting her. I told her that even with those symptoms that there is no indica tion for surgery that I could see and I did not particularly note any lipoma that needed to be removed. I discussed with her few options if she disagrees with my assessment including repeating the ultrasound, consulting another surgeon and again reiterated that she may want to consult a plastic surgeon with regards to the more prominent axillary skin and subcutaneous tissue fold.Follow-up as needed. Functional Status Description No Information Available Mental Status Description No Information Available Referrals Refer to Reason for Referral Status Appt Date Gustavo Browne MD NODULE LEFT LOWER BACK Scheduled 0 09/22/[address] [place] [id number] [phone]
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
--- OUTSIDE RECORDS SUMMARY | 2021-03-17 00:11 | CCD ---
Author Author [facility] Organization [facility] Address Unknown Phone Unavailable Care Team Providers Care Healthcare Technician Name Role Phone Mick HARP MD Unavailable Unavailable Mick HARP MD Unavailable Unavailable Mick HARP MD Unavailable Unavailable Mick HARP MD Unavailable Unavailable Mick HARP MD Unavailable Unavailable Mick HARP MD Unavailable Unavailable Mick HARP MD Unavailable Unavailable Mick HARP MD Unavailable Unavailable Mick HARP MD Unavailable Unavailable Mick HARP MD Unavailable Unavailable Mick HARP MD Unavailable Unavailable BARAYUGAMick MD Unavailable Unavailable BARAYUGA, Mick SINGLETARY MD Unavailable Unavailable BARAYUGA, Mick SINGLETARY MD Unavailable Unavailable BARAYUGA, Mick SINGLETARY MD Unavailable Unavailable BARAYUGA, Mick SINGLETARY MD Unavailable Unavailable BARAYUGA, Mick SINGLETARY MD Unavailable Unavailable KOLBYAYUGA, Mick SINGLETARY MD Unavailable Unavailable BARAYUGA, Mick SINGLETARY MD Unavailable Unavailable BARAYUGA, Mick SINGLETARY MD Unavailable Unavailable BARAYUGA, Mick SINGLETARY MD Unavailable Unavailable BARAYUGA, Mick SINGLETARY MD Unavailable Unavailable BARAYUGA, Mick SINGLETAYR MD Unavailable Unavailable BARAYUGA, Mick SINGLETARY MD Unavailable Unavailable BARAYUGA, Mick SINGLETARY MD Unavailable Unavailable BARAYUGA, Mick SINGLETARY MD Unavailable Unavailable BARAYUGA, Mick SINGLETARY MD Unavailable Unavailable BARAYUGA, Mick SINGLETARY MD Unavailable Unavailable TRENTUGA, Mick SINGLETARY MD Unavailable Unavailable BARAYUGA, Mick SINGLETARY MD Unavailable Unavailable KOLBYAYUGA, Mick SINGLETARY MD Unavailable Unavailable BARAYUGA, Mick SINGLETARY MD Unavailable Unavailable BARAYUGA, Mick SINGLETARY MD Unavailable Unavailable BARAYUGA, Mick SINGLETARY MD Unavailable Unavailable BARAYUGA, Mick SINGLETARY MD Unavailable Unavailable LETTIERE, A DEYSI PA Unavailable Unavailable LETTIERE, A DEYSI PA Unavailable Unavailable LETTIERE, A DEYSI PA Unavailable Unavailable LETTIERE, A DEYSI PA Unavailable Unavailable LETTIERE, A DEYSI PA Unavailable Unavailable LETTIERE, A DEYSI PA Unavailable Unavailable LETTIERE, A DEYSI PA Unavailable Unavailable LETTIERE, A DEYSI PA Unavailable Unavailable LETTIERE, A DEYSI PA Unavailable Unavailable LETTIERE, A DEYSI PA Unavailable Unavailable LETTIERE, A DEYSI PA Unavailable Unavailable LETTIERE, A DEYSI PA Unavailable Unavailable LETTIERE, A DEYSI PA Unavailable Unavailable LETTIERE, A DEYSI PA Unavailable Unavailable LETTIERE, A DEYSI PA Unavailable Unavailable LETTIERE, A DEYSI PA Unavailable Unavailable LETTIERE, A DEYSI PA Unavailable Unavailable LETTIERE, A DEYSI PA Unavailable Unavailable LETTIERE, A DEYSI PA Unavailable Unavailable LETTIERE, A DEYSI PA Unavailable Unavailable LETTIERE, A DEYSI PA Unavailable Unavailable LETTIERE, A DEYSI PA Unavailable Unavailable LETTIERE, A DEYSI PA Unavailable Unavailable LETTIERE, A DEYSI PA Unavailable Unavailable LETTIERE, A DEYSI PA Unavailable Unavailable LETTIERE, A DEYSI PA Unavailable Unavailable LETTIERE, A DEYSI PA Unavailable Unavailable LETTIERE, A DEYSI PA Unavailable Unavailable LETTIERE, A DEYSI PA Unavailable Unavailable LETTIERE, A DEYSI PA Unavailable Unavailable LETTIERE, A DEYSI PA Unavailable Unavailable Feola, T Breanne PA Unavailable Unavailable Feola, T Breanne PA Unavailable Unavailable Feola, T Breanne PA Unavailable Unavailable Feola, T Breanne PA Unavailable Unavailable Feola, T Breanne PA Unavailable Unavailable Feola, T Breanne PA Unavailable Unavailable Feola, T Breanne PA Unavailable Unavailable Feola, T Breanne PA Unavailable Unavailable Feola, T Breanne PA Unavailable Unavailable Feola, T Breanne PA Unavailable Unavailable Feola, T Breanne PA Unavailable Unavailable Feola, T Breanne PA Unavailable Unavailable Feola, T Breanne PA Unavailable Unavailable Feola, T Breanne PA Unavailable Unavailable Feola, T Breanne PA Unavailable Unavailable Feola, T Breanne PA Unavailable Unavailable Feola, T Breanne PA Unavailable Unavailable Feola, T Breanne PA Unavailable Unavailable Feola, T Breanne PA Unavailable Unavailable Feola, T Breanne PA Unavailable Unavailable Feola, T Breanne PA Unavailable Unavailable Feola, T Breanne PA Unavailable Unavailable Feola, T Breanne PA Unavailable Unavailable Feola, T Breanne PA Unavailable Unavailable Feola, T Breanne PA Unavailable Unavailable Feola, T Breanne PA Unavailable Unavailable Feola, T Breanne PA Unavailable Unavailable Feola, T Breanne PA Unavailable Unavailable Feola, T Breanne PA Unavailable Unavailable Feola, T Breanne PA Unavailable Unavailable Feola, T Breanne PA Unavailable Unavailable Feola, T Breanne PA Unavailable Unavailable Feola, T Breanne PA Unavailable Unavailable Feola, T Breanne PA Unavailable Unavailable Feola, T Breanne PA Unavailable Unavailable Feola, T Breanne PA Unavailable Unavailable Feola, T Breanne PA Unavailable Unavailable Feola, T Breanne PA Unavailable Unavailable Feola, T Breanne PA Unavailable Unavailable Feola, T Breanne PA Unavailable Unavailable Feola, T Breanne PA Unavailable Unavailable PHAM, L VINCE PA Unavailable Unavailable PHAM, L VINCE PA Unavailable Unavailable PHAM, L VINCE PA Unavailable Unavailable PHAM, L VINCE PA Unavailable Unavailable PHAM, L VINCE PA Unavailable Unavailable PHAM, L VINCE PA Unavailable Unavailable PHAM, L VINCE PA Unavailable Unavailable PHAM, L VINCE PA Unavailable Unavailable PHAM, L VINCE PA Unavailable Unavailable PHAM, L VINCE PA Unavailable Unavailable PHAM, L VINCE PA Unavailable Unavailable PHAM, L VINCE PA Unavailable Unavailable PHAM, L VINCE PA Unavailable Unavailable PHAM, L VINCE PA Unavailable Unavailable PHAM, L VINCE PA Unavailable Unavailable PHAM, L VINCE PA Unavailable Unavailable RING, K LEANN PA Unavailable Unavailable RING, K LEANN PA Unavailable Unavailable RING, K LEANN PA Unavailable Unavailable RING, K LEANN PA Unavailable Unavailable RING, K LEANN PA Unavailable Unavailable RING, K LEANN PA Unavailable Unavailable RING, K LEANN PA Unavailable Unavailable RING, K LEANN PA Unavailable Unavailable RING, K LEANN PA Unavailable Unavailable RING, K LEANN PA Unavailable Unavailable RING, K LEANN PA Unavailable Unavailable RING, K LEANN PA Unavailable Unavailable RING, K LEANN PA Unavailable Unavailable RING, K LEANN PA Unavailable Unavailable RING, K LEANN PA Unavailable Unavailable RING, K LEANN PA Unavailable Unavailable RING, K LEANN PA Unavailable Unavailable RING, K LEANN PA Unavailable Unavailable RING, K LEANN PA Unavailable Unavailable RING, K LEANN PA Unavailable Unavailable RING, K LEANN PA Unavailable Unavailable RING, K LEANN PA Unavailable Unavailable Re-disclosure Warning The records that you are about to access may contain information from federally-assisted alcohol or drug abuse programs. If such information is present, then the following federally mandated warning applies: This information has been disclosed to you from records protected by federal confidentiality rules (42 CFR part 2). The federal rules prohibit you from making any further disclosure of this information unless further disclosure is expressly permitted by the written consent of the person to whom it pertains or as otherwise permitted by 42 CFR part 2. A general authorization for the release of medical or other information is NOT sufficient for this purpose. The Federal rules restrict any use of the information to criminally investigate or prosecute any alcohol or drug abuse patient.The records that you are about to access may contain highly sensitive health information, the redisclosure of which is protected by Article 27-F of the [facility] Public Health law. If you continue you may have access to information: Regarding HIV / AIDS; Provided by facilities licensed or operated by the [facility] Office of Mental Health; or Provided by the [facility] Office for People With Developmental Disabilities. If such information is present, then the following [facility] mandated warning applies: This information has been disclosed to you from confidential records which are protected by state law. State law prohibits you from making any further disclosure of this information without the specific written consent of the person to whom it pertains, or as otherwise permitted by law. Any unauthorized further disclosure in violation of state law may result in a fine or half-way sentence or both. A general authorization for the release of medical or other information is NOT sufficient authorization for further disc losure. Family History Family Member Name Family Member Gender Family Member Status Date o f Status Description Data Source(s) Unknown Male Problem MEDENT ([facility]) Encounters Encounter Providers Location Date Indications Data Source(s ) Outpatient Attender: Breanne WATKINS 021 02:47:24 PM EDT - 02/09/2021 03:43:01 PM EDT DocuTap ([facility] ) Outpatient Attender: HAYDER Morley/Kay/Tim/ Reintj 02/07/2021 09:40:00 AM EDT [facility] ([facility]) Unknown [address] [facility] [place] [address] 02/07/2021 12:00:00 AM EDT eCW1 ([facility]) Outpatient [address] [place] [address] 01/11/2021 12:00:00 AM EDT [facility]CW1 ([facility]) Office Visit Attender: HAYDER Morley/Kay/Tim/ Reindl 11/03/2020 03:15:00 PM EDT MEDENT ([facility]) Outpatient Attender: HAYDER Morley/Kay/Tim/ Reindl 10/25/2020 01:00:00 PM EDT MED[facility] ([facility]) Unknown [address] [facility] [place] [address] 10/07/2020 12:00:00 AM EDT eCW1 ([facility]) Unknown [address] [facility] [place] [address] 10/05/2020 12:00:00 AM EDT eCW1 ([facility]) Outpatient Attender: HAYDER Morley/Kay/Tim/ Johan 09/22/2020 02:15:00 PM EDT MED[facility] ([facility]) Unknown [address] [facility] [place] [address] 09/20/2020 12:00:00 AM EDT eCW1 ([facility]) Outpatient [address] [facility] [place] [address] 09/05/2020 12:00:00 AM EDT eCW1 ([facility]) Unknown [address] [facility] [place] [address] 09/05/2020 12:00:00 AM EDT eCW1 ([facility]) (WC ESTOB) WCenter Est OB [address] [place] [address] 08/31/2020 12:00:00 AM EDT eCW1 ([facility]) (WC ESTOB) WCenter Est OB [address] [place] [address] 08/03/2020 12:00:00 AM EDT eCW1 ([facility]) Outpatient Attender: DEYSI castaneda 07/22/2020 12:00:00 PM EDT MEDENT ([facility]) (WC ESTOB) WCenter Est OB [address] [place] [address] 07/13/2020 12:00:00 AM EDT eCW1 ([facility]) Unknown [address] [facility] [place] [address] 07/12/2020 12:00:00 AM EDT eCW1 ([facility]) Outpatient [address] [facility] [address] 07/05/2020 12:00:00 AM EDT eCW1 ([facility]) (WC ESTOB) WCenter Est OB [address] [place] [address] 06/02/2020 12:00:00 AM EST eCW1 ([facility]) Outpatient Attender: LEANN Clemente 05/26/2020 11:00:00 AM EST [facility] ([facility]) Unknown [address] [facility] [address] 04/26/2020 12:00:00 AM EST eCW1 ([facility]) Unknown [address] [facility] [address] 04/05/2020 12:00:00 AM EST eCW1 ([facility]) Outpatient [address] [facility] [address] 03/23/2020 12:00:00 AM EST eCW1 ([facility]) Outpatient Attender: VINCE WATKINS Main Office 03/09/2020 0 1:30:00 PM EST MEDENT ([facility]) Unknown [address] [facility] [address] 03/01/2020 12:00:00 AM EST eCW1 ([facility]) (WC 20ESGYN) WCenter 20 Min Est Bookie [address] [place] [address] 02/03/2020 12:00:00 AM EDT eCW1 ([facility]) Medications Medication Brand Name Start Date Product Form Dose Route Admi nistrative Instructions Pharmacy Instructions Status Indications Reaction Description Data Source(s) No Active Medications 05/26/2020 12:00:00 AM EST completed MEDENT ([facility]) Prednisone 20 MG Oral Tablet Prednisone 05/26/2020 12:00:00 AM EST ORAL completed MEDENT ([facility]) 200 ACTUAT Albuterol 0.09 MG/ACTUAT Metered Dose Inhaler [Pr oAir] Proair HFA 05/26/2020 12:00:00 AM EST ORAL completed MEDENT ([facility]) Clonazepam 0.5 MG Oral Tablet Clonazepam 03/08/2020 12:00:00 AM EST ORAL active [facility] ([facility]) Insurance Providers Payer name Policy type / Coverage type Policy ID Covered republican ID Covered republican's relationship to bowers Policy Bowers Plan Information [facility] FEDERAL EMPLOYEE PROGRAM [id number] MO2 [id number] BS Fed Plan Commercial [id number] Family Dependent [id number] [facility] FEDERAL EMPLOYEE PROGRAM [id number] MO2 [id number] [employer] FEDERAL [id number] MO2 [id number] [employer] BCBS FEDERAL [id number] MO2 [id number] EXCELLUS C [id number] Child [id number] [facility] Federal Plan Commercial [id number] Family Dependent [facility] FEDERAL EMPLOYEE PROGRAM [id number] MO2 [id number] [facility] [place] FED[place]AL [id number] MO2 [id number] [place] Federal Employee Program J [id number] PARENT [id number] [place] Medigap Part B [id number] Self [id number] [facility] [id number] SP [id number] MEDICARE [id number] SP [id number] MEDICARE [id number] SP [id number] Q75 BCBS Federal P [id number] O [id number] Medicare S [id number] S [id number] Q75 Medicare C [id number] SELF [id number] Medicaid O [id number] S [id number] BCBS Federal P [id number] O [id number] [place] Medicare Medicare Part B [id number] Self [id number] [employer] Blue Cross and Blue Shield - [place] Blue Cross/B lue Shield [id number] Self [id number] [facility] Commercial Insurance Co. [id number] Self [id number] ANSI-Commercial [id number] [facility]-Medicare Part B [id number] ANS-Medicare Part B [id number] ANSI-Commercial [id number] Medicare (Part B) Medicare Primary [id number] Self 0 [id number] BCBS Federal [facility] Part B [id number] Family Dependent [id number] Medicare (Part B) Medicare Primary [id number] Self 0 [id number] Medicare (Part B) Medicare Primary [id number] Self 0 [id number] BCBS Federal [facility] Part B [id number] Family Dependent [id number] Medicare (Part B) Medicare Primary [id number] Self 0 [id number] MEDICARE C [id number] S [id number] BCBS Federal Commercial [id number] Family Dependent [id number] BCBS OF [place] 306/806 [id number] MO2 [id number] PREFERRED CARE [id number] FA2 [id number] [place] 306/806 [id number] FA [id number] O BLUE [id number] FA [id number] BC BS [place] FEDERAL B [id number] C [id number] [place] [id number] BC/BS Federal Commercial [id number] Family Dependent BCBS [place] FEDERAL PLN O [id number] P [id number] UNHC COMMUNITY PLAN MCDHMO [id number] SP [id number] [place] [id number] SP [id number] BCBS FEDERAL EMPLOYEE PROGRAM [id number] MO2 [id number] [facility] MCRHMO [id number] SP [id number] MEDICARE [id number] SP [id number] BCBS FEDERAL EMPLOYEE PROGRAM [id number] MO2 [id number] [place] [id number] SP [id number] MEDICAID M [id number] S [id number] MEDICARE C [id number] S [id number] [id number] BC [place] FED[place]AL B [id number] P [id number] Medicaid O [id number] S [id number] [place] [id number] 18 [id number] MEDIC[place] PART [place] [id number] 18 [id number] EX[place] FEP BS [id number] Medicare S [id number] S [id number] Q75 MEDICAID [id number] SP [id number] ANSI-Commercial [id number] ANSI-Medicare Part B [id number] ANSI-Commercial [id number] ANSI-Medicare Part B [id number] ANSI-Medicare Part B [id number] ANSI-Commercial [id number] Problems, Conditions, and Diagnoses Code Display Name Description Problem Type Effective Dates Data Source(s) F90.2 [id number] Attention deficit hyperactivity disorder (ADHD), combined type Problem 09/05/2020 12:00:00 AM EDT eCW1 ([facility]) Z34.80 care Supervision of other normal P roblem 05/18/2020 12:00:00 AM EST eCW1 ([facility]) N94.89 Vaginal odor Vaginal odor Problem 03/23/2020 12:00:00 A M EST eCW1 ([facility]) N94.6 Dysmenorrhea Dysmenorrhea Problem 03/23/2020 12:00:00 A M EST eCW1 ([facility]) [id number] Preoperative cardiovascular examination Preoperative cardiovascular examination Problem 03/09/2020 12:00:00 AM EST MED[facility] ([facility]) Surgeries/Procedures Procedure Description Date Indications Data Source(s) OFFICE OUTPATIENT VISIT 15 MINUTES 02/07/2021 12:00:00 AM EDT MEDENT ([facility], ) Excision Tumor Soft Tissue Back/Flank 10/25/2020 12:00 :00 AM EDT MEDENT ([facility], ) OFFICE OUTPATIENT VISIT 15 MINUTES 10/25/2020 12:00:00 AM EDT MEDENT ([facility]) OFFICE OUTPATIENT VISIT 15 MINUTES 09/22/2020 12:00:00 AM EDT [facility]) ECG ROUTINE ECG W/LEAST 12 LDS W/I&R 03/09/2020 12:00: 00 AM EST MEDENT ([facility]) Results ID Date Data Source [id number] 02/20/2021 12:00:00 AM EST [facility] Name Value Range Interpretation Code Description Data Yvonne rce(s) Supporting Document(s) SARS-COV-2 Negative [facility] This lab was ordered by Dimitri and re ported by Dimitri. ID Date Data Source [id number] 02/09/2021 03:15:00 PM EDT [facility] Name Value Range Interpretation Code Description Data Yvonne rce(s) Supporting Document(s) SARS-CoV-2 RNA Resp Ql AREN+probe DETECTED [facility] This lab was ordered by ANA ash and reported by ANA Bowers. ID Date Data Source [id number] 10/25/2020 04:26:00 PM EDT [facility] ([facility]) Name Value Range Interpretation Code Description Data Yvonne rce(s) Supporting Document(s) Surgical pathology study Laboratory test result [facility] ([facility]) FINAL DIAGNOSIS Soft tissue, right lower back, excision: Mature fibroadipose tissue, consistent with lipoma. 10/27/2020 - 1114 CLINICAL DIAGNOSIS Lipoma right lower back 10/26/2020 - 1330 GROSS DIAGNOSIS Received in formalin labeled "right lower back" and consists of multiple fragments of yellow-martin fibroadipose tissue measuring 4.5 x 2.8 x 1.4 cm. in aggregate. 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 -SVY 10/26/2020 - 1330 Signed JUANITA MOREJON MD 10/27/2020 1434 ID Date Data Source URINE CULTURE 07/05/2020 12:00:00 AM EDT eCW1 ([facility]) Name Value Range Interpretation Code Description Data Yvonne rce(s) Supporting Document(s) URINE CULTURE eCW1 ([facility]) ID Date Data Source UA URINALYSIS 07/05/2020 12:00:00 AM EDT eCW1 ([facility]) Name Value Range Interpretation Code Description Data Yvonne rce(s) Supporting Document(s) UA URINALYSIS eCW1 ([facility]) ID Date Data Source PAP REQUEST FOR SERVICE 06/02/2020 12:00:00 AM EST eCW1 ([facility]) Name Value Range Interpretation Code Description Data Yvonne rce(s) Supporting Document(s) PAP REQUEST FOR SERVICE eCW1 ( [facility]) ID Date Data Source [id number] 05/26/2020 12:00:00 AM EST [facility] Name Value Range Interpretation Code Description Data Yvonne rce(s) Supporting Document(s) SARS-CoV2 Rapid Antigen Negative [facility] This lab was reported by Richa Levin Maria Luisa. ID Date Data Source FACTOR VIII AG (VON WILLEBRAN) 02/03/2020 12:00:00 AM EDT eC W1 ([facility]) Name Value Range Interpretation Code Description Data Yvonne rce(s) Supporting Document(s) 80 50-200 FACTOR VIII AG (VON AMERICO BRAN) eCW1 ([facility]) Procedure Social History Code Duration Value Status Description Data Source(s ) Smoking 01/11/2021 12:00:00 AM EDT Former Smoker completed Former Smoker eCW1 ([facility]) Smoking 01/11/2021 12:00:00 AM EDT Former Smoker completed Former Smoker eCW1 ([facility]) Smoking 09/05/2020 12:00:00 AM EDT Former Smoker completed Former Smoker eCW1 ([facility]) Smoking 09/05/2020 12:00:00 AM EDT Former Smoker completed Former Smoker eCW1 ([facility]) Smoking 09/05/2020 12:00:00 AM EDT Former Smoker completed Former Smoker eCW1 ([facility]) Smoking 09/05/2020 12:00:00 AM EDT Former Smoker completed Former Smoker eCW1 ([facility]) Smoking 09/05/2020 12:00:00 AM EDT Former Smoker completed Former Smoker eCW1 ([facility]) Smoking 09/05/2020 12:00:00 AM EDT Former Smoker completed Former Smoker eCW1 ([facility]) Smoking 08/31/2020 12:00:00 AM EDT Former Smoker completed Former Smoker eCW1 ([facility]) Smoking 08/03/2020 12:00:00 AM EDT Former Smoker completed Former Smoker eCW1 ([facility]) 07/26/2020 12:00:00 AM EDT completed MEDENT ([facility]) Smoking 07/13/2020 12:00:00 AM EDT Former Smoker completed Former Smoker eCW1 ([facility]) Smoking 07/13/2020 12:00:00 AM EDT Former Smoker completed Former Smoker eCW1 ([facility]) Smoking 05/30/2020 12:00:00 AM EST Former Smoker completed Former Smoker eCW1 ([facility]) Smoking 05/26/2020 12:00:00 AM EST Patient is a former smoker completed Patient is a former smoker MEDENT ([facility]) Smoking 03/21/2020 12:00:00 AM EST Former Smoker completed Former Smoker eCW1 ([facility]) Smoking 03/21/2020 12:00:00 AM EST Former Smoker completed Former Smoker eCW1 ([facility]) Smoking 03/21/2020 12:00:00 AM EST Former Smoker completed Former Smoker eCW1 ([facility]) Smoking 02/03/2020 12:00:00 AM EDT Former Smoker completed Former Smoker eCW1 ([facility]) Smoking 02/03/2020 12:00:00 AM EDT Former Smoker completed Former Smoker eCW1 ([facility]) Vital Signs ID Date Data Source UNK Name Value Range Interpretation Code Description Data Source(s) Diastolic blood pressure 65 mm[Hg] 65 mm[Hg] [facility] ([facility] ) Systolic blood pressure 100 mm[Hg] 100 mm[Hg] M EDENT ([facility], ) Body temperature 98.2 [degF] 98.2 [degF] [facility] ([facility], ) Heart rate 65 /min 65 /min [facility] ([facility], ) Body height 64.75 [in_i] 64.75 [in_i] MEDENT ([facility], ) 5'4.75" [place] body weight 120 [lb_av] 120 [lb_av] MEDEN T ([facility], ) Body weight 141.4 [lb_av] 141.4 [lb_av] eCW1 ([facility]) Body height 64 [in_i] 64 [in_i] eCW1 ([facility]) Body mass index (BMI) [Ratio] 24.27 kg/m2 24.27 kg/m2 eCW1 ([facility]) Heart rate 114 /min 114 /min eCW1 (Formerly [facility]) Respiratory rate 189 /min 189 /min eCW1 ([facility]ly [facility]) Body temperature 98.5 [degF] 98.5 [degF] eCW1 ( [facility]) Systolic blood pressure 120 mm[Hg] 120 mm[Hg] e CW1 ([facility]) Diastolic blood pressure 70 mm[Hg] 70 mm[Hg] eCW1 ([facility]) Systolic blood pressure 112 mm[Hg] 112 mm[Hg] M EDENT ([facility], ) Diastolic blood pressure 71 mm[Hg] 71 mm[Hg] MEDENT ([facility], ) Heart rate 63 /min 63 /min MEDENT ([facility], ) Body height 64.75 [in_i] 64.75 [in_i] MEDENT ([facility], ) 5'4.75" [place] body weight 120 [lb_av] 120 [lb_av] MEDEN T ([facility], ) Heart rate 56 /min 56 /min MEDENT ([facility], ) Systolic blood pressure 97 mm[Hg] 97 mm[Hg] M EDENT ([facility], ) Diastolic blood pressure 63 mm[Hg] 63 mm[Hg] MEDENT ([facility], ) Body height 64.75 [in_i] 64.75 [in_i] MEDENT ([facility]) 5'4.75" Body weight 137.25 [lb_av] 137.25 [lb_av] MEDEN T ([facility]) Body mass index (BMI) [Ratio] 23.0 kg/m2 23.0 k g/m2 [facility] ([facility]) [place] body weight 120 [lb_av] 120 [lb_av] MEDEN T ([facility]) Body weight 62.257 kg 62.257 kg MEDENT ([facility]) Body surface area Derived from formula 1.68 m2 1.68 m2 [facility] ([facility]) Body height 64.75 [in_i] 64.75 [in_i] [facility] ([facility]) 5'4.75" Body weight 137.25 [lb_av] 137.25 [lb_av] MEDEN T ([facility]) Body mass index (BMI) [Ratio] 23.0 kg/m2 23.0 k g/m2 [facility] ([facility]) [place] body weight 120 [lb_av] 120 [lb_av] MEDEN T ([facility]) Body weight 62.257 kg 62.257 kg [facility] ([facility]) Body surface area Derived from formula 1.68 m2 1.68 m2 [facility] ([facility]) Body weight 59.989 kg 59.989 kg [facility] ([facility]) Systolic blood pressure 111 mm[Hg] 111 mm[Hg] M EDENT ([facility]) Diastolic blood pressure 69 mm[Hg] 69 mm[Hg] MEDENT ([facility]) Heart rate 70 /min 70 /min [facility] ([facility]) Body height 64.75 [in_i] 64.75 [in_i] [facility] ([facility]) 5'4.75" Body weight 132.25 [lb_av] 132.25 [lb_av] MEDEN T ([facility]) Body mass index (BMI) [Ratio] 22.2 kg/m2 22.2 k g/m2 [facility] ([facility]) Body surface area Derived from formula 1.65 m2 1.65 m2 MEDENT ([facility]) [place] body weight 120 [lb_av] 120 [lb_av] MEDEN T ([facility]) Body weight 127.2 [lb_av] 127.2 [lb_av] eCW1 ([facility]) Body height 64 [in_i] 64 [in_i] eCW1 ([facility]) Body mass index (BMI) [Ratio] 21.83 kg/m2 21.83 kg/m2 eCW1 ([facility]) Heart rate 91 /min 91 /min eCW1 ([facility]ly [facility]) Respiratory rate 18 /min 18 /min eCW1 ([facility]) Body temperature 97.3 [degF] 97.3 [degF] eCW1 ( [facility]) Systolic blood pressure 120 mm[Hg] 120 mm[Hg] e CW1 ([facility]) Diastolic blood pressure 68 mm[Hg] 68 mm[Hg] eCW1 ([facility]) Body weight 123 [lb_av] 123 [lb_av] eCW1 ([facility]) Body weight 55.79 kg 55.79 kg W1 ([facility]) Body height 64 [in_i] 64 [in_i] eCW1 ([facility]) Systolic blood pressure 110 mm[Hg] 110 mm[Hg] e CW1 ([facility]) Diastolic blood pressure 68 mm[Hg] 68 mm[Hg] eCW1 ([facility]) Body mass index (BMI) [Ratio] 21.113 kg/m2 21.1 13 kg/m2 eCW1 ([facility]) Body weight 116 [lb_av] 116 [lb_av] eCW1 ([facility]) Body weight 52.62 kg 52.62 kg eCW1 ([facility]) Body height 64 [in_i] 64 [in_i] eCW1 ([facility]) Body mass index (BMI) [Ratio] 19.911 kg/m2 19.9 11 kg/m2 eCW1 ([facility]) Systolic blood pressure 120 mm[Hg] 120 mm[Hg] e CW1 ([facility]) Diastolic blood pressure 60 mm[Hg] 60 mm[Hg] eCW1 ([facility]) Systolic blood pressure 106 mm[Hg] 106 mm[Hg] M EDENT ([facility], [facility]) Diastolic blood pressure 68 mm[Hg] 68 mm[Hg] MEDENT ([facility], [facility]) Heart rate 78 /min 78 /min MEDENT ([facility], [facility]) Respiratory rate 12 /min 12 /min MEDENT ( [facility], [facility]) Oxygen saturation in Arterial blood by Pulse oximetry 97 % 97 % MEDENT ([facility], [facility]) Body temperature 98.0 [degF] 98.0 [degF] MEDENT ([facility], [facility]) Body weight 118.00 [lb_av] 118.00 [lb_av] MEDEN T ([facility], [facility]) Body height 65 [in_i] 65 [in_i] MEDENT ([facility]) 5'5" Body mass index (BMI) [Ratio] 19.6 kg/m2 19.6 k g/m2 MEDENT ([facility]) Body weight 118.6 [lb_av] 118.6 [lb_av] eCW1 ([facility]) Body height 64 [in_i] 64 [in_i] eCW1 ([facility]) Body mass index (BMI) [Ratio] 20.358 kg/m2 20.3 58 kg/m2 eCW1 ([facility]) Systolic blood pressure 110 mm[Hg] 110 mm[Hg] e CW1 ([facility]) Diastolic blood pressure 62 mm[Hg] 62 mm[Hg] eCW1 ([facility]) Body weight 118.2 [lb_av] 118.2 [lb_av] eCW1 ([facility]) Body height 64 [in_i] 64 [in_i] eCW1 ([facility]) Body mass index (BMI) [Ratio] 20.29 kg/m2 20.29 kg/m2 eCW1 ([facility]) Systolic blood pressure 106 mm[Hg] 106 mm[Hg] e CW1 ([facility]) Diastolic blood pressure 64 mm[Hg] 64 mm[Hg] eCW1 ([facility]) Body weight 52.25 kg 52.25 kg eCW1 ([facility]) Body weight 115.2 [lb_av] 115.2 [lb_av] eCW1 ([facility]) Body height 64 [in_i] 64 [in_i] eCW1 ([facility]) Body mass index (BMI) [Ratio] 19.774 kg/m2 19.7 74 kg/m2 eCW1 ([facility]) Systolic blood pressure 114 mm[Hg] 114 mm[Hg] e CW1 ([facility]) Diastolic blood pressure 62 mm[Hg] 62 mm[Hg] eCW1 ([facility]) Systolic blood pressure 107 mm[Hg] 107 mm[Hg] M EDENT ([facility], [facility]) Diastolic blood pressure 68 mm[Hg] 68 mm[Hg] MEDENT ([facility], [facility]) Heart rate 77 /min 77 /min MEDENT ([facility], [facility]) Respiratory rate 15 /min 15 /min MEDENT ( [facility], [facility]) Oxygen saturation in Arterial blood by Pulse oximetry 98 % 98 % MEDENT ([facility], [facility]) Body temperature 99.8 [degF] 99.8 [degF] MEDENT ([facility], [facility]) Body weight 110.00 [lb_av] 110.00 [lb_av] MEDEN T ([facility], [facility]) Body height 64 [in_i] 64 [in_i] MEDENT ([facility], [facility]) 5'4" Body mass index (BMI) [Ratio] 18.9 kg/m2 18.9 k g/m2 MEDENT ([facility], [facility]) Body weight 117.6 [lb_av] 117.6 [lb_av] eCW1 ([facility]) Body height 64 [in_i] 64 [in_i] eCW1 ([facility]) Body mass index (BMI) [Ratio] 20.18 kg/m2 20.18 kg/m2 eCW1 ([facility]) Systolic blood pressure 110 mm[Hg] 110 mm[Hg] e CW1 ([facility]) Diastolic blood pressure 70 mm[Hg] 70 mm[Hg] eCW1 ([facility]) Body weight 115.00 [lb_av] 115.00 [lb_av] MEDEN T ([facility]) Body height 65 [in_i] 65 [in_i] MEDENT ([facility] 5'5" Body mass index (BMI) [Ratio] 19.1 kg/m2 19.1 k g/m2 MEDENT ([facility]) Heart rate 64 /min 64 /min MEDENT ([facility]) regular Respiratory rate 16 /min 16 /min MEDENT ( [facility]) non-labored Systolic blood pressure--sitting 102 mm[Hg] 102 mm[Hg] MEDENT ([facility]) Ra, medium cuff Diastolic blood pressure--sitting 66 mm[Hg] 66 mm[Hg] MEDENT ([facility]) Ra, medium cuff Systolic blood pressure--supine 108 mm[Hg] 108 mm[Hg] MEDENT ([facility]) Ra, medium cuff Diastolic blood pressure--supine 68 mm[Hg] 68 mm[Hg] MEDENT ([facility]) Ra, medium cuff Body weight 114.4 [lb_av] 114.4 [lb_av] eCW1 ([facility]) Body weight 51.89 kg 51.89 kg W1 ([facility]) Body height 64 [in_i] 64 [in_i] eCW1 ([facility]) Body mass index (BMI) [Ratio] 19.63 kg/m2 19.63 kg/m2 W1 ([facility]) Systolic blood pressure 100 mm[Hg] 100 mm[Hg] e CW1 ([facility]) Diastolic blood pressure 60 mm[Hg] 60 mm[Hg] eCW1 ([facility])
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
--- OUTSIDE RECORDS SUMMARY | 2021-03-17 00:11 | CCD | Continuity of Care Document ---
Author Author Joyce BROWNE MD Organization Unknown Address [address] [place] [address] Phone [phone] Care Team Providers Care Tilt Tray Driver Name Role Phone Kisha Sanchez P.A.-C. AUTM [...] Date of Delivery Based on Final SHAMAR Allergies, Adverse Reactions, Alerts Active Allergies Criticality Reaction | Severity Comments Date Lamictal Unable to assess criticality 08/11/2018 Xanax Unable to assess criticality 08/11/2018 Adhesives Unable to assess criticality 08/11/2018 Latex Unable to assess criticality 08/11/2018 Azithromycin Unable to assess criticality 08/11/2018 Alprazolam Unable to assess criticality Difficulty breathing 09/22/2020 Medications Active Medications SIG Qnty Indications Ordering Provide r Date 27-1mg Tablets 1tab po qd Unknown Folate 1600mcg Tablet 1tab po qd Unknown Vitamin D3 2200Iu Tablet 1tab po qd Unknown Calcium 500/D [id number] Tablets 1 qd Unknown Clonazepam 0.5mg Tablets 1 ta b prn Unknown Immunizations Description No Information Available Vital Signs Date Vital Result Comment 11/03/2020 3:25pm BP Systolic 112 mmHg BP Diastolic 71 mmHg Heart Rate 63 /min Height 64.75 inches 5'4.75" [place] Body Weight 120 lb 10/25/2020 1:08pm BP Systolic 97 mmHg BP Diastolic 63 mmHg Heart Rate 56 /min Height 64.75 inches 5'4.75" Weight 137.25 lb BMI (Body Mass Index) 23.0 kg/m2 [place] Body Weight 120 lb Weight 62.257 kg BSA (Body Surface Area) 1.68 m2 Results Test Acquired Date Facility Test Result H/L Range Note Laboratory test finding 10/25/2020 [facility] [place] [address] [phone] Pathology Request For Service (SEE NOTE) 1 1 FINAL DIAGNOSIS Soft tissue, right lower back, excision: Mature fibroadipose tissue, consistent with lipoma. 10/27/2020 - 111 CLINICAL DIAGNOSIS Lipoma right lower back 10/26/2020 - 1330 GROSS DIAGNOSIS Received in formalin labeled "right lower back" and consists of multiple fragments of yellow-martin fibroadipose tissue measuring 4.5 x 2.8 x 1.4 cm. in aggregate. Fight Manager sections in one block. -SVY 10/26/2020 - 1330 Signed JUANITA MOREJON MD 10/27/2020 1434 Procedures Date Code Description Status 10/25/2020 40815 Office/Outpatient Established Lo w MDM 20-29 Min Completed 10/25/2020 65015 Excision Tumor Soft Tissue Back/ Flank Completed 09/22/2020 95070 Office/Outpatient Established Lo w MDM 20-29 Min Completed Medical Devices Description No Information Available Encounters Type Date Location Provider Dx Diagnosis Office Visit 11/03/2020 3:15p [facility] Anirudh Browne MD D17.1 Benign lipomatous neoplasm o f skin, subcu of trunk Z48.817 Encntr for surgical aftcr fo l surgery on the skin, subcu Office Visit 10/25/2020 1:00p [facility] Anirudh Browne MD D17.1 Benign lipomatous neoplasm o f skin, subcu of trunk Office Visit 09/22/2020 2:15p [facility] Anirudh Browne MD D17.1 Benign lipomatous neoplasm o f skin, subcu of trunk Assessments Date Code Description Provider 11/03/2020 D17.1 Lipoma of skin and subcutaneous tissue of trunk Gustavo Browne MD 11/03/2020 Z48.817 Encounter for surgic al aftercare following surgery on the skin and subcutaneous tissue Gustavo Browne MD 10/25/2020 D17.1 Lipoma of skin and subcutaneous tissue of trunk Gustavo Browne MD 09/22/2020 D17.1 Lipoma of skin and subcutaneous tissue of trunk Gustavo Browne MD Plan of Treatment 11/03/2020 - Gustavo Browne MD* D17.1 Lipoma of skin and subcutaneous tissue of trunk* Comments:* Discussed with her pathology results as well as my impression after excision of the lipomatous nodules. There was not any distinct lump and there were some leftover prominent lipomatous nodules to the area which I do not think should be removed. In of itself does not seem to be a distinct lipoma just prominent adipose tissues. No signs of significant swelling, hematoma or seroma. I remove the sutures.Follow-up as needed. * Z48.817 Encounter for surgical aftercare following surgery on the skin and subcutaneous tissue Functional Status Description No Information Available Mental Status Description No Information Available Referrals Refer to Reason for Referral Status Appt Date Gustavo Browne MD NODULE LEFT LOWER BACK Scheduled 0 09/22/[address] [address] [phone]
--- OUTSIDE RECORDS SUMMARY | 2021-03-17 00:11 | CCD | Continuity of Care Document ---
Author Author Joyce BROWNE MD Organization Unknown Address [address] [place] [address] Phone [phone] Care Team Providers Care Freight Forwarder Name Role Phone Kisha Sanchez P.A.-C. AUTM [...] Tablet 1tab po qd Unknown Calcium 500/D [id number] Tablets 1 qd Unknown Clonazepam 0.5mg Tablets 1 ta b prn Unknown Immunizations Description No Information Available Vital Signs Date Vital Result Comment 11/03/2020 3:25pm BP Systolic 112 mmHg BP Diastolic 71 mmHg Heart Rate 63 /min Height 64.75 inches 5'4.75" [place] Body Weight 120 lb 10/25/2020 1:08pm BP Systolic 97 mmHg BP Diastolic 63 mmHg Heart Rate 56 /min Height 64.75 inches 5'4.75" Weight 137.25 lb BMI (Body Mass Index) 23.0 kg/m2 [place] Body Weight 120 lb Weight 62.257 kg BSA (Body Surface Area) 1.68 m2 Results Test Acquired Date Facility Test Result H/L Range Note Laboratory test finding 10/25/2020 [facility] [place] [address] [phone] Pathology Request For Service (SEE NOTE) 1 1 FINAL DIAGNOSIS Soft tissue, right lower back, excision: Mature fibroadipose tissue, consistent with lipoma. 10/27/2020 - 111 CLINICAL DIAGNOSIS Lipoma right lower back 10/26/2020 - 1330 GROSS DIAGNOSIS Received in formalin labeled "right lower back" and consists of multiple fragments of yellow-martin fibroadipose tissue measuring 4.5 x 2.8 x 1.4 cm. in aggregate. Hoop Maker sections in one block. -SVY 10/26/2020 - 1330 Signed JUANITA MOREJON MD 10/27/2020 1434 Procedures Date Code Description Status 10/25/2020 75312 Office/Outpatient Established Lo w MDM 20-29 Min Completed 10/25/2020 20204 Excision Tumor Soft Tissue Back/ Flank Completed 09/22/2020 79778 Office/Outpatient Established Lo w MDM 20-29 Min Completed Medical Devices Description No Information Available Encounters Type Date Location Provider Dx Diagnosis Office Visit 10/25/2020 1:00p [facility] Anirudh Browne MD D17.1 Benign lipomatous neoplasm o f skin, subcu of trunk Office Visit 09/22/2020 2:15p [facility] Anirudh Browne MD D17.1 Benign lipomatous neoplasm o f skin, subcu of trunk Assessments Date Code Description Provider 11/03/2020 D17.1 Lipoma of skin and subcutaneous tissue of trunk Gustavo Browne MD 10/25/2020 D17.1 Lipoma of [...] seroma. I remove the sutures.Follow-up as needed. Functional Status Description No Information Available Mental Status Description No Information Available Referrals Refer to Reason for Referral Status Appt Date Gustavo Browne MD NODULE LEFT LOWER BACK Scheduled 0 09/22/[address] [id number] [phone]
--- OUTSIDE RECORDS SUMMARY | 2021-03-17 00:11 | CCD | Continuity of Care Document ---
Author Author Joyce BROWNE MD Organization Unknown Address [address] [place] [address] Phone [phone] Care Team Providers Care Keyboard Instrument Tuner Name Role Phone Kisha Sanchez P.A.-C. AUTM [...] Tablet 1tab po qd Unknown Calcium 500/D [id number] Tablets 1 qd Unknown Clonazepam 0.5mg Tablets 1 ta b prn Unknown Placenta Caps 1 qd Unknown Immunizations Description No Information Available Vital Signs Date Vital Result Comment 02/07/2021 9:49am BP Systolic 100 mmHg BP Diastolic 65 mmHg Heart Rate 65 /min Body Temperature 98.2 F Height 64.75 inches 5'4.75" [place] Body Weight 120 lb 11/03/2020 3:25pm BP Systolic 112 mmHg BP Diastolic 71 mmHg Heart Rate 63 /min Height 64.75 inches 5'4.75" [place] Body Weight 120 lb Results Test Acquired Date Facility Test Result H/L Range Note Laboratory test finding 10/25/2020 [facility] [place] [address] [phone] Pathology Request For Service (SEE NOTE) 1 1 FINAL DIAGNOSIS Soft tissue, right lower back, excision: Mature fibroadipose tissue, consistent with lipoma. 10/27/2020 - 1114 CLINICAL DIAGNOSIS Lipoma right lower back 10/26/2020 - 1330 GROSS DIAGNOSIS Received in formalin labeled "right lower back" and consists of multiple fragments of yellow-martin fibroadipose tissue measuring 4.5 x 2.8 x 1.4 cm. in aggregate. Cutter Banana Room sections in one block. -SVY 10/26/2020 - 1330 Signed JUANITA MOREJON MD 10/27/2020 1434 Procedures Date Code Description Status 10/25/2020 04768 Office/Outpatient Established Lo w MDM 20-29 Min Completed 10/25/2020 88772 Excision Tumor Soft Tissue Back/ Flank Completed 09/22/2020 43193 Office/Outpatient Established Lo w MDM 20-29 Min Completed Medical Devices Description No Information Available Encounters Type Date Location Provider Dx Diagnosis Office Visit 11/03/2020 3:15p [facility] Anirudh Browne MD D17.1 Benign lipomatous neoplasm o f skin, subcu of trunk Z48.817 Encntr for surgical aftcr fo l surgery on the skin, subcu Office Visit 10/25/2020 1:00p [facility] Anirudh Browne MD D17.1 Benign lipomatous neoplasm o f skin, subcu of trunk Office Visit 09/22/2020 2:15p [facility] Anirudh Browne MD D17.1 Benign [...] LEFT LOWER BACK Scheduled 0 09/22/[address] [address] [phone]
--- OUTSIDE RECORDS SUMMARY | 2021-03-17 00:11 | CCD | Continuity of Care Document ---
Author Author Joyce BROWNE MD Organization Unknown Address [address] [place] [id number] Phone [phone] Care Team Providers Care Mannequin Sander And Finisher Name Role Phone Kisha aSnchez P.A.-C. AUTM [phone] Problems Active Problems Provider Date Allergic asthma [...] Tablet 1tab po qd Unknown Calcium 500/D [id number] Tablets 1 qd Unknown Clonazepam 0.5mg Tablets 1 ta b prn Unknown Immunizations Description No Information Available Vital Signs Date Vital Result Comment 11/03/2020 3:25pm BP Systolic 112 mmHg BP Diastolic 71 mmHg Heart Rate 63 /min Height 64.75 inches 5'4.75" [place] Body Weight 120 lb 10/25/2020 1:08pm BP Systolic 97 mmHg BP Diastolic 63 mmHg Heart Rate 56 /min Height 64.75 inches 5'4.75" Weight 137.25 lb BMI (Body Mass Index) 23.0 kg/m2 [place] Body Weight 120 lb Weight 62.257 kg BSA (Body Surface Area) 1.68 m2 Results Test Acquired Date Facility Test Result H/L Range Note Laboratory test finding 10/25/2020 [facility] [place] [address] [phone] Pathology Request For Service (SEE NOTE) 1 1 FINAL DIAGNOSIS Soft tissue, right lower back, excision: Mature fibroadipose tissue, consistent with lipoma. 10/27/2020 - 111 CLINICAL DIAGNOSIS Lipoma right lower back 10/26/2020 - 1330 GROSS DIAGNOSIS Received in formalin labeled "right lower back" and consists of multiple fragments of yellow-martin fibroadipose tissue measuring 4.5 x 2.8 x 1.4 cm. in aggregate. Pattern Marking Supervisor sections in one block. -SVY 10/26/2020 - 1330 Signed JUANITA MOREJON MD 10/27/2020 1434 Procedures Date Code Description Status 10/25/2020 43987 Office/Outpatient Established Lo w MDM 20-29 Min Completed 10/25/2020 75385 Excision Tumor Soft Tissue Back/ Flank Completed 09/22/2020 64404 Office/Outpatient Established Lo w MDM 20-29 Min Completed Medical Devices Description No Information Available Encounters Type Date Location Provider Dx Diagnosis Office Visit 09/22/2020 2:15p [facility] Anirudh Browne MD D17.1 [...] NODULE LEFT LOWER BACK Scheduled 0 09/22/[address] [place] [id number] [phone]
[2021-03-17 01:17] LABS: HCG, SERUM QUALITATIVE NEGATIVE (NEGATIVE)
--- NOTE | 2021-03-17 03:03 | REPVR ---
PROCEDURE INFORMATION: Exam: CT Head without Contrast Exam date and time: 03/17/21 (1:42am) Age: 26 years old Clinical indication: Diplopia and dysrthria. Possible TIA. TECHNIQUE: Imaging protocol: Computed tomography of the head without contrast Radiation optimization: All CT scans at this facility use at least one of these dose optimization techniques: automated exposure control; mA and/or kV adjustment per patient size (includes targeted exams where dose is matched to clinical indication); or iterative reconstruction. COMPARISON: MRI BRAIN of 05/24/14 FINDINGS: Brain: Unremarkable. No acute hemorrhage. Unremarkable white matter. No mass effect. Cerebral ventricles: No ventriculomegaly. Paranasal sinuses: Visualized sinuses are unremarkable. No air-fluid levels. Mastoid air cells: Visualized mastoid air cells are well aerated. Bones/joints: Unremarkable. No acute fracture. Soft tissues: Unremarkable. IMPRESSION: No acute intracranial pathology. Electronically signed by: Alyssa Marquez On 03/17/2021 03:03:26 AM
[2021-03-17 04:51] VITALS: BP 123/59
--- OUTSIDE RECORDS SUMMARY | 2021-03-17 05:02 | CCD ---
Author Author [facility] Organization [facility] Address Unknown Phone Unavailable Care Team Providers Care Product Delivery Specialist Name Role Phone Mick HARP MD Unavailable [...] Mick SINGLETARY MD Unavailable Unavailable BARAYUGA, Mick SIGNLETARY MD Unavailable Unavailable BARAYUGA, Mick SINGLETARY MD Unavailable Unavailable BARAYUGA, Mick SINGLETARY MD Unavailable Unavailable BARAYUGA, Mcik SINGLETARY MD Unavailable Unavailable BARAYUGA, Mick SINGLETARY [...] is protected by Article 27-F of the [facility] Public Health law. If you continue you may have access to information: Regarding HIV / AIDS; Provided by facilities licensed or operated by the [facility] Office of Mental Health; or Provided by the [facility] Office for People With Developmental Disabilities. If such information is present, then the following [facility] mandated warning applies: This information has been [...] law may result in a fine or [place] health [place] sentence or both. A general authorization for [...] EDT - 02/09/2021 03:43:01 PM EDT DocuTap ([facility] ) Outpatient Attender: HAYDER Morley/Kay/Tim/ Reintj 02/07/2021 09:40:00 AM EDT MEDENT ([facility]) Unknown [address] [address] 02/07/2021 12:00:00 AM EDT eCW1 ([facility]) Outpatient [address] [address] 01/11/2021 12:00:00 AM EDT eCW1 [facility]) Office Visit Attender: HAYDER Morley/Kay/Tim/ Reindl 11/03/2020 03:15:00 PM EDT MEDENT ([facility]) Outpatient Attender: HAYDER Morley/Kay/Tim/ Reindl 10/25/2020 01:00:00 PM EDT MEDENT ([facility]) Unknown [address] [address] 10/07/2020 12:00:00 AM EDT eCW1 ([facility]) Unknown [address] [address] 10/05/2020 12:00:00 AM EDT eCW1 ([facility]) Outpatient Attender: HAYDER Morley/Kay/Tim/ Johan 09/22/2020 02:15:00 PM EDT MEDENT ([facility]) Unknown [address] [address] 09/20/2020 12:00:00 AM EDT eCW1 ([facility]) Outpatient [address] [address] 09/05/2020 12:00:00 AM EDT eCW1 ([facility]) Unknown [address] [address] 09/05/2020 12:00:00 AM EDT eCW1 ([facility]) (WC ESTOB) WCenter Est OB [address] [place] [address] 08/31/2020 12:00:00 AM EDT eCW1 ([facility]) (WC ESTOB) WCenter Est OB [address] [place] [address] 08/03/2020 12:00:00 AM EDT eCW1 ([facility]) Outpatient Attender: DEYSI castaneda 07/22/2020 12:00:00 PM EDT MEDENT ([facility]) (WC ESTOB) WCenter Est OB [address] [place] [address] 07/13/2020 12:00:00 AM EDT eCW1 ([facility]) Unknown [address] [address] 07/12/2020 12:00:00 AM EDT eCW1 ([facility]) Outpatient [address] [facility] [facility] [id number] 07/05/2020 12:00:00 AM EDT eCW1 ([facility]) (WC ESTOB) WCenter Est OB [address] [place] [address] 06/02/2020 12:00:00 AM EST eCW1 ([facility]) Outpatient Attender: LEANN Clemente 05/26/2020 11:00:00 AM EST MEDENT ([facility]) Unknown [address] [id number] 04/26/2020 12:00:00 AM EST eCW1 ([facility]) Unknown [address] [address] 04/05/2020 12:00:00 AM EST eCW1 ([facility]) Outpatient [address] [address] 03/23/2020 12:00:00 AM EST eCW1 ([facility]) Outpatient Attender: VINCE WATKINS Main Office 03/09/2020 0 1:30:00 PM EST MEDENT ([facility]) Unknown [address] [facility] [address] 03/01/2020 12:00:00 AM EST eCW1 ([facility]) (WC 20ESGYN) WCenter 20 Min Est Unit Secretary [address] [place] [address] 02/03/2020 12:00:00 AM EDT eCW1 ([facility]) Medications Medication Brand Name Start Date Product Form Dose Route Admi nistrative Instructions Pharmacy Instructions Status Indications Reaction Description Data Source(s) No Active Medications 05/26/2020 12:00:00 AM EST completed MEDENT ([facility], [facility]) Prednisone 20 MG Oral Tablet Prednisone 05/26/2020 12:00:00 AM EST ORAL completed MEDENT ([facility]) 200 ACTUAT Albuterol 0.09 MG/ACTUAT Metered Dose Inhaler [Pr oAir] Proair HFA 05/26/2020 12:00:00 AM EST ORAL completed MEDENT ([facility]) Clonazepam 0.5 MG Oral Tablet Clonazepam 03/08/2020 12:00:00 AM EST ORAL active MEDENT ([facility]) Insurance Providers Payer name Policy type / Coverage type Policy ID Covered libertarian ID Covered libertarian's relationship to bowers Policy Bowers Plan Information [employer] [id number] MO2 [id number] BS Fed Plan Commercial [id number] Family Dependent [id number] [employer] [id number] MO2 [id number] [employer]BS FEDERAL [id number] MO2 [id number] [employer] BCBS FEDERAL [id number] MO2 [id number] EXCELLUS C [id number] Child [id number] [employer] Federal Plan Commercial [id number] Family Dependent [employer] PROGRAM [id number] MO2 [id number] [facility] [place] FEDERAL [id number] MO2 [id number] [place] Federal Employee Program J [id number] PARENT [id number] [place] Medigap Part B [id number] Self [id number] [facility] [id number] SP [id number] MEDICARE [id number] SP [id number] MEDICARE [id number] SP [id number] [id number] BCBS Federal P [id number] O [id number] Medicare S [id number] S [id number] Q75 Medicare C [id number] SELF [id number] Medicaid O [id number] S [id number] BCBS Federal P [id number] O [id number] [place] Medicare Medicare Part B [id number] Self [id number] [employer] Blue Cross and Blue Shield - [place] Blue Cross/B lue Shield [id number] Self [id number] [facility] Commercial Insurance Co. [id number] Self [id number] ANSI-Commercial [id number] [facility]-Medicare Part B [id number] ANS-Medicare Part B [id number] ANSI-Commercial [id number] Medicare (Part B) Medicare Primary [id number] Self 0 [id number] BCBS Federal [facility] Part B [id number] Family Dependent [id number] Medicare (Part B) Medicare Primary [id number] Self 0 [id number] Medicare (Part B) Medicare Primary [id number] Self 0 [id number] BCBS Federal [facility] Part B [id number] Family Dependent [id number] Medicare (Part B) Medicare Primary [id number] Self 0 [id number] MEDICARE C [id number] S [id number] BCBS Federal Commercial [id number] Family Dependent [id number] BCBS OF [place] 306/806 [id number] MO2 [id number] PREFERRED CARE [id number] FA2 [id number] [place] 306/806 [id number] FA [id number] O BLUE [id number] FA [id number] BC BS [place] FEDERAL B [id number] C [id number] [place] [id number] BC/BS Federal Commercial [id number] Family Dependent BCBS [place] FEDERAL PLN O [id number] P [id number] UNHC COMMUNITY PLAN MCDHMO [id number] SP [id number] [place] [id number] SP [id number] BCBS FEDERAL EMPLOYEE PROGRAM [id number] MO2 [id number] [facility] MCRHMO [id number] SP [id number] MEDICARE [id number] SP [id number] Q75 BCBS FEDERAL EMPLOYEE PROGRAM [id number] MO2 [id number] [place] [id number] SP [id number] MEDICAID M [id number] S [id number] MEDICARE C [id number] S [id number] BC BS [place] FEDERAL B [id number] P [id number] Medicaid O [id number] S [id number] [place]ID [place] [id number] MEDIC[place] PART [place] [id number] 18 [id number] EXCELLUS CNY FEP BS [id number] Medicare S [id number] S [id number] Q75 MEDICAID [id number] SP [id number] ANSI-Commercial [id number] ANSI-Medicare Part B [id number] ANSI-Commercial [id number] ANSI-Medicare Part B [id number] ANSI-Medicare Part B [id number] ANSI-Commercial [id number] Problems, Conditions, and Diagnoses Code Display Name Description Problem Type Effective Dates Data Source(s) F90.2 [id number] Attention deficit hyperactivity disorder (ADHD), combined type Problem 09/05/2020 12:00:00 AM EDT eCW1 ([facility]) Z34.80 care Supervision of other normal P roblem 05/18/2020 12:00:00 AM EST eCW1 ([facility]) N94.89 Vaginal odor Vaginal odor Problem 03/23/2020 12:00:00 A M EST eCW1 ([facility]) N94.6 Dysmenorrhea Dysmenorrhea Problem 03/23/2020 12:00:00 A M EST eCW1 ([facility]) [id number] Preoperative cardiovascular examination Preoperative cardiovascular examination Problem 03/09/2020 12:00:00 AM EST MEDENT ([facility]) Surgeries/Procedures Procedure Description Date Indications Data Source(s) OFFICE OUTPATIENT VISIT 15 MINUTES 02/07/2021 12:00:00 AM EDT MEDENT ([facility], ) Excision Tumor Soft Tissue Back/Flank 10/25/2020 12:00 :00 AM EDT MEDENT ([facility], ) OFFICE OUTPATIENT VISIT 15 MINUTES 10/25/2020 12:00:00 AM EDT MEDENT ([facility]) OFFICE OUTPATIENT VISIT 15 MINUTES 09/22/2020 12:00:00 AM [facility]T [facility] ECG ROUTINE ECG W/LEAST 12 LDS W/I&R 03/09/2020 12:00: 00 AM EST MEDENT ([facility]) Results ID Date Data Source [id number] 02/20/2021 12:00:00 AM EST [facility] Name Value Range Interpretation Code Description Data Yvonne rce(s) Supporting Document(s) SARS-COV-2 Negative [facility] This lab was ordered by Dimitri and re ported by Dimitri. ID Date Data Source [id number] 02/09/2021 03:15:00 PM EDT [facility] Name Value Range Interpretation Code Description Data Yvonne rce(s) Supporting Document(s) SARS-CoV-2 RNA Resp Ql AREN+probe DETECTED [facility] This lab was ordered by ANA ash and reported by ANA Bowers. ID Date Data Source [id number] 10/25/2020 04:26:00 PM EDT [facility] Name Value Range Interpretation Code Description Data Yvonne rce(s) Supporting Document(s) Surgical pathology study Laboratory test result [facility] ([facility]) FINAL DIAGNOSIS Soft tissue, right lower back, excision: Mature fibroadipose tissue, consistent with lipoma. 10/27/2020 - 1114 CLINICAL DIAGNOSIS Lipoma right lower back 10/26/2020 - 1330 GROSS DIAGNOSIS Received in formalin labeled "right lower back" and consists of multiple fragments of yellow-martin fibroadipose tissue measuring 4.5 x 2.8 x 1.4 cm. in aggregate. Lead Auditor sections in one block. -SVY 10/26/2020 - 1330 Signed JUNAITA MOREJON MD 10/27/2020 1434 ID Date Data Source URINE CULTURE 07/05/2020 12:00:00 AM EDT eCW1 ([facility]) Name Value Range Interpretation Code Description Data Yvonne rce(s) Supporting Document(s) URINE CULTURE eCW1 ([facility]) ID Date Data Source UA URINALYSIS 07/05/2020 12:00:00 AM EDT eCW1 ([facility]) Name Value Range Interpretation Code Description Data Yvonne rce(s) Supporting Document(s) UA URINALYSIS eCW1 ([facility]) ID Date Data Source PAP REQUEST FOR SERVICE 06/02/2020 12:00:00 AM EST eCW1 ([facility]) Name Value Range Interpretation Code Description Data Yvonne rce(s) Supporting Document(s) PAP REQUEST FOR SERVICE eCW1 ( [facility]) ID Date Data Source [id number] 05/26/2020 12:00:00 AM EST [facility] Name Value Range Interpretation Code Description Data Yvonne rce(s) Supporting Document(s) SARS-CoV2 Rapid Antigen Negative [facility] This lab was reported by Richa Levin Maria Luisa. ID Date Data Source FACTOR VIII AG (VON WILLEBRAN) 02/03/2020 12:00:00 AM EDT eC W1 ([facility]) Name Value Range Interpretation Code Description Data Yvonne rce(s) Supporting Document(s) 80 50-200 FACTOR VIII AG (VON AMERICO BRAN) eCW1 ([facility]) Procedure Social History Code Duration Value Status Description Data Source(s ) Smoking 01/11/2021 12:00:00 AM EDT Former Smoker completed Former Smoker eCW1 ([facility]) Smoking 01/11/2021 12:00:00 AM EDT Former Smoker completed Former Smoker eCW1 ([facility]) Smoking 09/05/2020 12:00:00 AM EDT Former Smoker completed Former Smoker eCW1 ([facility]) Smoking 09/05/2020 12:00:00 AM EDT Former Smoker completed Former Smoker eCW1 ([facility]) Smoking 09/05/2020 12:00:00 AM EDT Former Smoker completed Former Smoker eCW1 ([facility]) Smoking 09/05/2020 12:00:00 AM EDT Former Smoker completed Former Smoker eCW1 ([facility]) Smoking 09/05/2020 12:00:00 AM EDT Former Smoker completed Former Smoker eCW1 ([facility]) Smoking 09/05/2020 12:00:00 AM EDT Former Smoker completed Former Smoker eCW1 ([facility]) Smoking 08/31/2020 12:00:00 AM EDT Former Smoker completed Former Smoker eCW1 ([facility]) Smoking 08/03/2020 12:00:00 AM EDT Former Smoker completed Former Smoker eCW1 ([facility]) 07/26/2020 12:00:00 AM EDT completed MEDENT ([facility]) Smoking 07/13/2020 12:00:00 AM EDT Former Smoker completed Former Smoker eCW1 ([facility]) Smoking 07/13/2020 12:00:00 AM EDT Former Smoker completed Former Smoker eCW1 ([facility]) Smoking 05/30/2020 12:00:00 AM EST Former Smoker completed Former Smoker eCW1 ([facility]) Smoking 05/26/2020 12:00:00 AM EST Patient is a former smoker completed Patient is a former smoker MEDENT ([facility]) Smoking 03/21/2020 12:00:00 AM EST Former Smoker completed Former Smoker eCW1 ([facility]) Smoking 03/21/2020 12:00:00 AM EST Former Smoker completed Former Smoker eCW1 ([facility]) Smoking 03/21/2020 12:00:00 AM EST Former Smoker completed Former Smoker eCW1 ([facility]) Smoking 02/03/2020 12:00:00 AM EDT Former Smoker completed Former Smoker eCW1 ([facility]) Smoking 02/03/2020 12:00:00 AM EDT Former Smoker completed Former Smoker eCW1 ([facility]) Vital Signs ID Date Data Source UNK Name Value Range Interpretation Code Description Data Source(s) Diastolic blood pressure 65 mm[Hg] 65 mm[Hg] [facility] Systolic blood pressure 100 mm[Hg] 100 mm[Hg] M EDENT ([facility], ) Body temperature 98.2 [degF] 98.2 [degF] [facility] ([facility], ) Heart rate 65 /min 65 /min [facility] ([facility], ) Body height 64.75 [in_i] 64.75 [in_i] MEDENT ([facility], ) 5'4.75" [place] body weight 120 [lb_av] 120 [lb_av] MEDEN T ([facility], ) Body height 64 [in_i] 64 [in_i] eCW1 ([facility]) Body mass index (BMI) [Ratio] 24.27 kg/m2 24.27 kg/m2 eCW1 ([facility]) Heart rate 114 /min 114 /min eCW1 ([facility]) Respiratory rate 189 /min 189 /min eCW1 ([facility]) Body temperature 98.5 [degF] 98.5 [degF] eCW1 ( [facility]) Systolic blood pressure 120 mm[Hg] 120 mm[Hg] e CW1 ([facility]) Diastolic blood pressure 70 mm[Hg] 70 mm[Hg] eCW1 ([facility]) Body weight 141.4 [lb_av] 141.4 [lb_av] eCW1 ([facility]) Systolic blood pressure 112 mm[Hg] 112 mm[Hg] M EDENT ([facility], ) Diastolic blood pressure 71 mm[Hg] 71 mm[Hg] MEDENT ([facility], ) Heart rate 63 /min 63 /min MEDENT ([facility], ) Body height 64.75 [in_i] 64.75 [in_i] MEDENT ([facility], ) 5'4.75" [place] body weight 120 [lb_av] 120 [lb_av] MEDEN T ([facility], ) Heart rate 56 /min 56 /min MEDENT ([facility], ) Systolic blood pressure 97 mm[Hg] 97 mm[Hg] M EDENT ([facility], ) Diastolic blood pressure 63 mm[Hg] 63 mm[Hg] MEDENT ([facility], ) Body height 64.75 [in_i] 64.75 [in_i] MEDENT ([facility]) 5'4.75" Body weight 137.25 [lb_av] 137.25 [lb_av] MEDEN T ([facility]) Body mass index (BMI) [Ratio] 23.0 kg/m2 23.0 k g/m2 [facility] ([facility]) [place] body weight 120 [lb_av] 120 [lb_av] MEDEN T ([facility]) Body weight 62.257 kg 62.257 kg MEDENT ([facility]) Body surface area Derived from formula 1.68 m2 1.68 m2 [facility] ([facility]) Body height 64.75 [in_i] 64.75 [in_i] [facility] 5'4.75" Body weight 137.25 [lb_av] 137.25 [lb_av] MEDEN T ([facility]) Body mass index (BMI) [Ratio] 23.0 kg/m2 23.0 k g/m2 [facility] ([facility]) [place] body weight 120 [lb_av] 120 [lb_av] MEDEN T ([facility]) Body weight 62.257 kg 62.257 kg [facility] ([facility]) Body surface area Derived from formula 1.68 m2 1.68 m2 [facility] ([facility]) Systolic blood pressure 111 mm[Hg] 111 mm[Hg] M EDENT ([facility]) Body weight 59.989 kg 59.989 kg [facility] ([facility]) Diastolic blood pressure 69 mm[Hg] 69 mm[Hg] [facility] ([facility]) Heart rate 70 /min 70 /min [facility] ([facility]) Body height 64.75 [in_i] 64.75 [in_i] [facility] ([facility]) 5'4.75" Body weight 132.25 [lb_av] 132.25 [lb_av] MEDEN T ([facility]) Body mass index (BMI) [Ratio] 22.2 kg/m2 22.2 k g/m2 [facility] ([facility]) [place] body weight 120 [lb_av] 120 [lb_av] MEDEN T ([facility]) Body surface area Derived from formula 1.65 m2 1.65 m2 MEDENT ([facility]) Body weight 127.2 [lb_av] 127.2 [lb_av] eCW1 ([facility]) Body height 64 [in_i] 64 [in_i] eCW1 ([facility]) Body mass index (BMI) [Ratio] 21.83 kg/m2 21.83 kg/m2 eCW1 ([facility]) Heart rate 91 /min 91 /min eCW1 ([facility]) Respiratory rate 18 /min 18 /min eCW1 ([facility]) Body temperature 97.3 [degF] 97.3 [degF] eCW1 ( [facility]) Systolic blood pressure 120 mm[Hg] 120 mm[Hg] e CW1 ([facility]) Diastolic blood pressure 68 mm[Hg] 68 mm[Hg] eCW1 ([facility]) Body mass index (BMI) [Ratio] 21.113 kg/m2 21.1 13 kg/m2 eCW1 ([facility]) Systolic blood pressure 110 mm[Hg] 110 mm[Hg] e CW1 ([facility]) Diastolic blood pressure 68 mm[Hg] 68 mm[Hg] eCW1 ([facility]) Body weight 123 [lb_av] 123 [lb_av] eCW1 ([facility]) Body weight 55.79 kg 55.79 kg eCW1 ([facility]) Body height 64 [in_i] 64 [in_i] eCW1 ([facility]) Body weight 116 [lb_av] 116 [lb_av] eCW1 ([facility]) Body weight 52.62 kg 52.62 kg eCW1 ([facility]) Body height 64 [in_i] 64 [in_i] eCW1 ([facility]) Body mass index (BMI) [Ratio] 19.911 kg/m2 19.9 11 kg/m2 eCW1 ([facility]) Systolic blood pressure 120 mm[Hg] 120 mm[Hg] e CW1 ([facility]) Diastolic blood pressure 60 mm[Hg] 60 mm[Hg] eCW1 ([facility]) Systolic blood pressure 106 mm[Hg] 106 mm[Hg] M EDENT ([facility], [facility]) Diastolic blood pressure 68 mm[Hg] 68 mm[Hg] MEDENT ([facility], [facility]) Heart rate 78 /min 78 /min MEDENT ([facility], [facility]) Respiratory rate 12 /min 12 /min MEDENT ( [facility], [facility]) Oxygen saturation in Arterial blood by Pulse oximetry 97 % 97 % MEDENT ([facility], [facility]) Body temperature 98.0 [degF] 98.0 [degF] MEDENT ([facility], [facility]) Body weight 118.00 [lb_av] 118.00 [lb_av] MEDEN T ([facility], [facility]) Body height 65 [in_i] 65 [in_i] MEDENT ([facility]) 5'5" Body mass index (BMI) [Ratio] 19.6 kg/m2 19.6 k g/m2 MEDENT ([facility]) Body weight 118.6 [lb_av] 118.6 [lb_av] eCW1 ([facility]) Body height 64 [in_i] 64 [in_i] eCW1 ([facility]) Body mass index (BMI) [Ratio] 20.358 kg/m2 20.3 58 kg/m2 eCW1 ([facility]) Systolic blood pressure 110 mm[Hg] 110 mm[Hg] e CW1 ([facility]) Diastolic blood pressure 62 mm[Hg] 62 mm[Hg] eCW1 ([facility]) Body weight 118.2 [lb_av] 118.2 [lb_av] eCW1 ([facility]) Body height 64 [in_i] 64 [in_i] eCW1 ([facility]) Body mass index (BMI) [Ratio] 20.29 kg/m2 20.29 kg/m2 eCW1 ([facility]) Systolic blood pressure 106 mm[Hg] 106 mm[Hg] e CW1 ([facility]) Diastolic blood pressure 64 mm[Hg] 64 mm[Hg] eCW1 ([facility]) Body weight 52.25 kg 52.25 kg eCW1 ([facility]) Body weight 115.2 [lb_av] 115.2 [lb_av] eCW1 ([facility]) Body height 64 [in_i] 64 [in_i] eCW1 ([facility]) Body mass index (BMI) [Ratio] 19.774 kg/m2 19.7 74 kg/m2 eCW1 ([facility]) Systolic blood pressure 114 mm[Hg] 114 mm[Hg] e CW1 ([facility]) Diastolic blood pressure 62 mm[Hg] 62 mm[Hg] eCW1 ([facility]) Systolic blood pressure 107 mm[Hg] 107 mm[Hg] M EDENT ([facility], [facility]) Diastolic blood pressure 68 mm[Hg] 68 mm[Hg] MEDENT ([place] [facility], [facility]) Heart rate 77 /min 77 /min MEDENT ([facility], [facility]) Respiratory rate 15 /min 15 /min MEDENT ( [facility], [facility]) Oxygen saturation in Arterial blood by Pulse oximetry 98 % 98 % MEDENT ([facility], [facility]) Body temperature 99.8 [degF] 99.8 [degF] MEDENT ([facility], [facility]) Body weight 110.00 [lb_av] 110.00 [lb_av] MEDEN T ([facility], [facility]) Body height 64 [in_i] 64 [in_i] MEDENT ([facility], [facility]) 5'4" Body mass index (BMI) [Ratio] 18.9 kg/m2 18.9 k g/m2 MEDENT ([facility], [facility]) Body weight 117.6 [lb_av] 117.6 [lb_av] eCW1 ([facility]) Body height 64 [in_i] 64 [in_i] eCW1 ([facility]) Body mass index (BMI) [Ratio] 20.18 kg/m2 20.18 kg/m2 eCW1 ([facility]) Systolic blood pressure 110 mm[Hg] 110 mm[Hg] e CW1 ([facility]) Diastolic blood pressure 70 mm[Hg] 70 mm[Hg] eCW1 ([facility]) Body weight 115.00 [lb_av] 115.00 [lb_av] MEDEN T ([facility]) Body height 65 [in_i] 65 [in_i] MEDENT ([facility] 5'5" Body mass index (BMI) [Ratio] 19.1 kg/m2 19.1 k g/m2 MEDENT ([facility]) Heart rate 64 /min 64 /min MEDENT ([facility]) regular Respiratory rate 16 /min 16 /min MEDENT ( [facility]) non-labored Systolic blood pressure--sitting 102 mm[Hg] 102 mm[Hg] MEDENT ([facility]) Ra, medium cuff Diastolic blood pressure--sitting 66 mm[Hg] 66 mm[Hg] MEDENT ([facility]) Ra, medium cuff Systolic blood pressure--supine 108 mm[Hg] 108 mm[Hg] MEDENT ([facility]) Ra, medium cuff Diastolic blood pressure--supine 68 mm[Hg] 68 mm[Hg] MEDENT ([facility]) Ra, medium cuff Body weight 114.4 [lb_av] 114.4 [lb_av] eCW1 ([facility]) Body weight 51.89 kg 51.89 kg W1 ([facility]) Body height 64 [in_i] 64 [in_i] eCW1 ([facility]) Body mass index (BMI) [Ratio] 19.63 kg/m2 19.63 kg/m2 W1 ([facility]) Systolic blood pressure 100 mm[Hg] 100 mm[Hg] e CW1 ([facility]) Diastolic blood pressure 60 mm[Hg] 60 mm[Hg] eCW1 ([facility])
== END 2021-03-17 04:59 | disposition left against medical advice (07) ==
LOC: M ED
DX: Z53.29 Procedure and treatment not carried out because of patient's decision for other reasons (principal)

== ENCOUNTER → 2021-03-29 | Outpatient (REF) | payer MEDICARE, MEDICAID ==
[2021-03-29 13:19] LABS: BASO % 0.5 % (0.0-1.0); EOS # 0.2 10^3/uL (0.0-0.5); EOS % 2.4 % (0.0-3.0); HEMATOCRIT 38.2 % (36.0-47.0); HEMOGLOBIN 12.2 g/dl (12.0-15.5); LYMPH # 2.2 10^3/uL (1.5-5.0); LYMPH % 35.8 % (24.0-44.0); MEAN CORPUSCULAR HEMOGLOBIN 30.4 pg (27.0-33.0); MEAN CORPUSCULAR HGB CONC 31.9 g/dl (32.0-36.5); MEAN CORPUSCULAR VOLUME 95.3 fl (80.0-96.0); MONO # 0.8 10^3/uL (0.0-0.8); MONO % 13.6 % (2.0-8.0); NEUTROPHILS # 2.9 10^3/uL (1.5-8.5); NEUTROPHILS % 47.5 % (36.0-66.0); PLATELET COUNT, AUTOMATED 171 10^3/uL (150-450); RED BLOOD COUNT 4.01 10^6/uL (4.00-5.40); WHITE BLOOD COUNT 6.2 10^3/uL (4.0-10.0)
[2021-03-29 13:47] LABS: ALBUMIN 4.1 GM/DL (3.2-5.2); ALT/SGPT 21 U/L (12-78); BILIRUBIN,TOTAL 0.4 MG/DL (0.2-1.0); BLOOD UREA NITROGEN 18 MG/DL (7-18); CALCIUM LEVEL 9.4 MG/DL (8.5-10.1); CARBON DIOXIDE LEVEL 28 MEQ/L (21-32); CHLORIDE LEVEL 108 MEQ/L (98-107); CREATININE FOR GFR 0.92 MG/DL (0.55-1.30); FOLATE 17.9 NG/ML; FREE T4 0.78 NG/DL (0.76-1.46); GLOMERULAR FILTRATION RATE > 60.0 (>60); GLUCOSE, FASTING 101 MG/DL (70-100); MAGNESIUM LEVEL 2.3 MG/DL (1.8-2.4); POTASSIUM SERUM 4.2 MEQ/L (3.5-5.1); SODIUM LEVEL 142 MEQ/L (136-145); TOTAL 25(OH) VITAMIN D 45.6 NG/ML (30.0-100.0); TOTAL PROTEIN 6.9 GM/DL (6.4-8.2); VITAMIN B12 LEVEL 654 PG/ML
== END ==
LOC: M SFHCADAM 08:02
PROVIDERS: ATTEND Physician Assistant
DX: G43.109 Migraine with aura, not intractable, without status migrainosus (principal); R42 Dizziness and giddiness; R13.0 Aphagia; H53.149 Visual discomfort, unspecified; H53.2 Diplopia; Z79.899 Other long term (current) drug therapy

== ENCOUNTER → 2021-04-19 | Outpatient (CLI) | payer MEDICARE, MEDICAID ==
[~2021-04-19] MED LIST changes: +PROHANCE 279.3MG/ML 15ML VIAL ONE
== END ==
LOC: M PLAIMG 09:59
PROVIDERS: ATTEND Physician Assistant
DX: G43.009 Migraine without aura, not intractable, without status migrainosus (principal); R42 Dizziness and giddiness; R13.0 Aphagia; H53.149 Visual discomfort, unspecified; H53.2 Diplopia
CPT/HCPCS: 70544; 70553; A9576

== ENCOUNTER → 2021-10-25 | Outpatient (REF) | payer MEDICARE, MEDICAID ==
[~2021-10-25] MED LIST changes: +ALBU2.5V10 NEB; -ALBU83IN NEB; -D31000TA2 PO; -PROHANCE 279.3MG/ML 15ML VIAL ONE; +VITA100093 PO
[2021-10-26 15:07] LABS: HERPES ZOSTER, VARICELLA IgG 162 index (Immune >165); HERPES ZOSTER, VARICELLA IgM <0.91 index (0.00-0.90)
== END ==
LOC: M SFHCADAM 11:08
PROVIDERS: ATTEND Physician Assistant
DX: Z01.84 Encounter for antibody response examination (principal)

== ENCOUNTER → 2022-03-24 | Outpatient (REF) | payer MEDICARE, MEDICAID | LOC: M LAB REF 17:55 | PROVIDERS: ATTEND Physician Assistant Medical | DX: R50.9 Fever, unspecified (principal) ==

== ENCOUNTER → 2022-03-26 | Outpatient (CLI) | payer MEDICARE, MEDICAID | LOC: M WUC 10:06 | PROVIDERS: ATTEND Physician Assistant Medical | DX: R05.9 Cough, unspecified (principal) ==

== ENCOUNTER → 2022-06-05 | Outpatient (CLI) | payer MEDICARE, MEDICAID | LOC: M PLALAB 15:05 | PROVIDERS: ATTEND Advanced Practice Midwife | DX: O36.80X0 Pregnancy with inconclusive fetal viability, not applicable or unspecified (principal); Z79.899 Other long term (current) drug therapy ==

== ENCOUNTER → 2022-06-07 | Outpatient (CLI) | payer MEDICARE, MEDICAID | LOC: M PLALAB 14:37 | PROVIDERS: ATTEND Advanced Practice Midwife | DX: O36.80X0 Pregnancy with inconclusive fetal viability, not applicable or unspecified (principal) ==

== ENCOUNTER → 2022-06-19 | Outpatient (CLI) | payer MEDICARE, MEDICAID ==
[2022-06-19 14:17] LABS: HEMATOCRIT 35.6 % (36.0-47.0); HEMOGLOBIN 11.5 g/dl (12.0-15.5); MEAN CORPUSCULAR HEMOGLOBIN 29.9 pg (27.0-33.0); MEAN CORPUSCULAR HGB CONC 32.3 g/dl (32.0-36.5); MEAN CORPUSCULAR VOLUME 92.5 fl (80.0-96.0); PLATELET COUNT, AUTOMATED 218 10^3/uL (150-450); RED BLOOD COUNT 3.85 10^6/uL (4.00-5.40); WHITE BLOOD COUNT 10.4 10^3/uL (4.0-10.0)
[2022-06-19 15:59] LABS: HIV 1&2 SCREEN CENTAUR NEGATIVE (NEGATIVE)
== END ==
LOC: M PLALAB 11:04
PROVIDERS: ATTEND Advanced Practice Midwife
DX: Z34.81 Encounter for supervision of other normal pregnancy, first trimester (principal)

== ENCOUNTER → 2022-07-16 | Outpatient (REF) | payer MEDICARE, MEDICAID ==
[2022-07-17 00:13] LABS: GC DNA AMPLIFICATION NEGATIVE (NEGATIVE)
== END ==
LOC: M SFHCWAGY 17:48
PROVIDERS: ATTEND Advanced Practice Midwife
DX: Z34.81 Encounter for supervision of other normal pregnancy, first trimester (principal); Z79.899 Other long term (current) drug therapy

== ENCOUNTER → 2022-07-18 | Outpatient (CLI) | payer MEDICARE, MEDICAID | LOC: M PLALAB 10:12 | PROVIDERS: ATTEND Obstetrics & Gynecology | DX: O09.291 Supervision of pregnancy with other poor reproductive or obstetric history, first trimester (principal) ==

== ENCOUNTER → 2022-09-24 | Outpatient (CLI) | payer MEDICARE, MEDICAID | LOC: M WHC 10:03 | PROVIDERS: ATTEND Nurse Practitioner Women's Health | DX: Z34.82 Encounter for supervision of other normal pregnancy, second trimester (principal); Z3A.22 22 weeks gestation of pregnancy ==

== ENCOUNTER 2023-02-09 04:51 | Emergency (ER) | payer MEDICARE, MEDICAID ==
[~2023-02-09] VITALS: Ht 164.5 cm; Wt 63.9 kg
[2023-02-09 05:58] LABS: BASO % 0.5 % (0.0-1.0); EOS # 0.2 10^3/uL (0.0-0.5); EOS % 2.4 % (0.0-3.0); HEMATOCRIT 37.6 % (36.0-47.0); HEMOGLOBIN 12.7 g/dl (12.0-15.5); LYMPH # 2.3 10^3/uL (1.5-5.0); LYMPH % 30.1 % (24.0-44.0); MEAN CORPUSCULAR HGB CONC 33.8 g/dl (32.0-36.5); MEAN CORPUSCULAR VOLUME 94.7 fl (80.0-96.0); MONO # 0.7 10^3/uL (0.0-0.8); MONO % 8.8 % (2.0-8.0); NEUTROPHILS # 4.4 10^3/uL (1.5-8.5); NEUTROPHILS % 58.1 % (36.0-66.0); PLATELET COUNT, AUTOMATED 171 10^3/uL (150-450); RED BLOOD COUNT 3.97 10^6/uL (4.00-5.40); WHITE BLOOD COUNT 7.5 10^3/uL (4.0-10.0)
[2023-02-09 06:24] LABS: LIPASE 26 U/L (12-53)
[2023-02-09 06:26] LABS: ALBUMIN 3.2 G/DL (3.2-5.2); ALKALINE PHOSPHATASE 148 U/L (46-116); ALT/SGPT 22 U/L (7.0-40); AST/SGOT 15 U/L (<34); BILIRUBIN,DIRECT < 0.1 MG/DL (<0.4); BILIRUBIN,TOTAL 0.4 MG/DL (0.3-1.2); BLOOD UREA NITROGEN 10 MG/DL (9-23); CALCIUM LEVEL 10.2 MG/DL (8.5-10.1); CARBON DIOXIDE LEVEL 26 MMOL/L (20-31); CHLORIDE LEVEL 105 MMOL/L (98-107); CREATININE FOR GFR 0.75 MG/DL (0.55-1.30); GLOMERULAR FILTRATION RATE > 60.0 (>60); GLUCOSE, FASTING 95 MG/DL (60-100); POTASSIUM SERUM 4.6 MMOL/L (3.5-5.1); SODIUM LEVEL 140 MMOL/L (136-145); TOTAL PROTEIN 6.4 G/DL (5.7-8.2)
[2023-02-09 10:17] VITALS: BP 115/70; TEMP 98.7; O2SAT 96
== END 2023-02-09 10:26 | disposition home or self-care (01) ==
LOC: M ED 04:51
DX: O90.89 Other complications of the puerperium, not elsewhere classified (principal); R10.2 Pelvic and perineal pain; Z79.899 Other long term (current) drug therapy; Z88.1 Allergy status to other antibiotic agents; Z88.8 Allergy status to other drugs, medicaments and biological substances; Z91.040 Latex allergy status

== ENCOUNTER → 2023-10-07 | Outpatient (CLI) | payer MEDICARE ==
[2023-10-07 14:36] LABS: BASO % 0.5 % (0.0-1.0); EOS # 0.1 10^3/uL (0.0-0.5); EOS % 1.6 % (0.0-3.0); HEMATOCRIT 37.9 % (36.0-47.0); HEMOGLOBIN 12.3 g/dl (12.0-15.5); LYMPH # 2.6 10^3/uL (1.5-5.0); MEAN CORPUSCULAR HEMOGLOBIN 29.9 pg (27.0-33.0); MEAN CORPUSCULAR HGB CONC 32.5 g/dl (32.0-36.5); MONO # 0.5 10^3/uL (0.0-0.8); MONO % 7.1 % (2.0-8.0); NEUTROPHILS % 54.7 % (36.0-66.0); PLATELET COUNT, AUTOMATED 190 10^3/uL (150-450); RED BLOOD COUNT 4.12 10^6/uL (4.00-5.40); WHITE BLOOD COUNT 7.3 10^3/uL (4.0-10.0)
[2023-10-07 15:13] LABS: ALBUMIN 4.2 G/DL (3.2-5.2); ALKALINE PHOSPHATASE 77 U/L (46-116); ALT/SGPT 20 U/L (7.0-40); AST/SGOT 26 U/L (<34); BILIRUBIN,TOTAL 0.5 MG/DL (0.3-1.2); BLOOD UREA NITROGEN 13 MG/DL (9-23); CALCIUM LEVEL 9.1 MG/DL (8.5-10.1); CARBON DIOXIDE LEVEL 29 MMOL/L (20-31); CHLORIDE LEVEL 109 MMOL/L (98-107); CHOLESTEROL LEVEL 188 MG/DL (<200); CHOLESTEROL RISK RATIO 2.47 (<5); CREATININE FOR GFR 0.74 MG/DL (0.55-1.30); GLOMERULAR FILTRATION RATE > 60.0 (>60); GLUCOSE, FASTING 86 MG/DL (60-100); HDL CHOLESTEROL 76.1 MG/DL (>40); LDL CHOLESTEROL 104.9 MG/DL (<100); NON-HDL-C 111.9 MG/DL; POTASSIUM SERUM 4.1 MMOL/L (3.5-5.1); SODIUM LEVEL 139 MMOL/L (136-145); TOTAL PROTEIN 6.9 G/DL (5.7-8.2); TRIGLYCERIDES LEVEL 35 MG/DL (<150)
[2023-10-07 15:14] LABS: THYROID STIMULATING HORMONE 1.173 uIU/ML (0.55-4.78)
[2023-10-07 15:15] LABS: FERRITIN 12.1 NG/ML (7.3-270.7); FOLATE 21.16 NG/ML (>5.4); FREE T4 0.99 NG/DL (0.89-1.76)
[2023-10-07 15:16] LABS: VITAMIN B12 LEVEL 611 PG/ML (211-911)
== END ==
LOC: M LAB 13:52
PROVIDERS: ATTEND Nurse Practitioner Psychiatric/Mental Health
DX: F41.1 Generalized anxiety disorder (principal); Z79.899 Other long term (current) drug therapy

== ENCOUNTER → 2023-10-14 | Outpatient (REF) | payer MEDICARE | LOC: M LAB REF 12:06 | PROVIDERS: ATTEND Physician Assistant Medical | DX: B34.9 Viral infection, unspecified (principal) ==

== ENCOUNTER 2024-03-06 07:52 | Emergency (ER) | payer MEDICARE, OTHER ==
[~2024-03-06] VITALS: Ht 165.1 cm; Wt 59.2 kg
[~2024-03-06 07:52] MED LIST changes: -HOLTER MONITOR XX
[2024-03-06 09:34] LABS: BASO % 0.5 % (0.0-1.0); EOS # 0.3 10^3/uL (0.0-0.5); EOS % 4.9 % (0.0-3.0); HEMATOCRIT 36.1 % (36.0-47.0); HEMOGLOBIN 11.8 g/dl (12.0-15.5); LYMPH # 2.1 10^3/uL (1.5-5.0); LYMPH % 36.9 % (24.0-44.0); MEAN CORPUSCULAR HEMOGLOBIN 30.3 pg (27.0-33.0); MEAN CORPUSCULAR HGB CONC 32.7 g/dl (32.0-36.5); MEAN CORPUSCULAR VOLUME 92.6 fl (80.0-96.0); MONO # 0.6 10^3/uL (0.0-0.8); MONO % 11.1 % (2.0-8.0); NEUTROPHILS # 2.6 10^3/uL (1.5-8.5); NEUTROPHILS % 46.4 % (36.0-66.0); PLATELET COUNT, AUTOMATED 155 10^3/uL (150-450); WHITE BLOOD COUNT 5.7 10^3/uL (4.0-10.0)
[2024-03-06 09:59] LABS: BLOOD UREA NITROGEN 16 MG/DL (9-23); CARBON DIOXIDE LEVEL 28 MMOL/L (20-31); CHLORIDE LEVEL 108 MMOL/L (98-107); CK-MB VALUE MASS < 1.0 NG/ML (<3.6); CREATININE FOR GFR 0.66 MG/DL (0.55-1.30); GLOMERULAR FILTRATION RATE > 60.0 (>60); GLUCOSE, FASTING 95 MG/DL (60-100); MAGNESIUM LEVEL 2.2 MG/DL (1.8-2.4); POTASSIUM SERUM 4.1 MMOL/L (3.5-5.1); SODIUM LEVEL 143 MMOL/L (136-145)
[2024-03-06 10:00] LABS: CPK CREATINE PHOSPHOKINASE 50 U/L (34-145)
[2024-03-06] MEDS ORDERED: HOLTER MONITOR XX (10:48)
[2024-03-06 10:59] LABS: HCG, SERUM QUALITATIVE NEGATIVE (NEGATIVE)
[2024-03-06 11:00] VITALS: BP 114/56; TEMP 96.7; O2SAT 98
== END 2024-03-06 11:06 | disposition home or self-care (01) ==
LOC: M ED 07:52
DX: R00.1 Bradycardia, unspecified (principal); R00.2 Palpitations; J45.909 Unspecified asthma, uncomplicated; F41.9 Anxiety disorder, unspecified; F32.A Depression, unspecified; F60.3 Borderline personality disorder; Z79.899 Other long term (current) drug therapy; Z88.1 Allergy status to other antibiotic agents; Z88.8 Allergy status to other drugs, medicaments and biological substances; Z91.040 Latex allergy status

== ENCOUNTER → 2024-03-06 | Outpatient (CLI) | payer MEDICAID, MEDICARE, OTHER ==
[~2024-03-06] MED LIST changes: +B-12100010 PO; +HOLTER MONITOR XX; +LINE1TAB6 PO; +MAGN500T6 PO; +METH1CAP17 PO
== END ==
LOC: M EKG 11:17
PROVIDERS: ATTEND Registered Nurse
DX: R00.2 Palpitations (principal)

== ENCOUNTER → 2024-06-10 | Outpatient (CLI) | payer MEDICARE, MEDICAID ==
[~2024-06-10] MED LIST changes: +HOLTER MONITOR XX
[2024-06-10 15:30] LABS: THYROID STIMULATING HORMONE 1.375 uIU/ML (0.55-4.78)
[2024-06-10 15:31] LABS: FREE T4 1.05 NG/DL (0.89-1.76); TOTAL 25(OH) VITAMIN D 30.8 NG/ML (20.0-100.0)
== END ==
LOC: M LAB 13:45
PROVIDERS: ATTEND Nurse Practitioner Psychiatric/Mental Health
DX: Z79.899 Other long term (current) drug therapy (principal)

== ENCOUNTER → 2024-07-15 | Outpatient (CLI) | payer MEDICARE, OTHER | LOC: M RAD 09:55 | PROVIDERS: ATTEND Otolaryngology | DX: E04.1 Nontoxic single thyroid nodule (principal) ==

== ENCOUNTER → 2024-08-18 | Outpatient (CLI) | payer MEDICARE, MEDICAID | LOC: M RAD 12:44 | PROVIDERS: ATTEND Otolaryngology | DX: K11.8 Other diseases of salivary glands (principal); R00.1 Bradycardia, unspecified; R07.9 Chest pain, unspecified; R06.02 Shortness of breath ==

== ENCOUNTER → 2024-08-18 | Outpatient (CLI) | payer MEDICARE, MEDICAID ==
[2024-08-18 13:54] LABS: CHOLESTEROL RISK RATIO 2.55 (<5); HDL CHOLESTEROL 64.2 MG/DL (>40); LDL CHOLESTEROL 88.6 MG/DL (<100); NON-HDL-C 99.8 MG/DL
== END ==
LOC: M LAB 12:48
PROVIDERS: ATTEND Internal Medicine Cardiovascular Disease
DX: R00.1 Bradycardia, unspecified (principal)

== ENCOUNTER 2025-02-16 10:57 | Emergency (ER) | payer OTHER, MEDICARE, MEDICAID ==
[~2025-02-16] VITALS: Ht 162.6 cm; Wt 54.5 kg
[2025-02-16 12:04] LABS: BASO # 0.0 10^3/uL (0.0-0.2); BASO % 0.5 % (0.0-1.0); EOS # 0.1 10^3/uL (0.0-0.5); EOS % 1.3 % (0.0-3.0); LYMPH # 2.4 10^3/uL (1.5-5.0); LYMPH % 31.4 % (24.0-44.0); MONO # 0.5 10^3/uL (0.0-0.8); MONO % 6.7 % (2.0-8.0); NEUTROPHILS # 4.6 10^3/uL (1.5-8.5); NEUTROPHILS % 59.8 % (36.0-66.0); PLATELET COUNT, AUTOMATED 176 10^3/uL (150-450)
[2025-02-16 12:35] LABS: ALT/SGPT 13 U/L (7.0-40); AST/SGOT 15 U/L (<34); CALCIUM LEVEL 8.8 MG/DL (8.5-10.1); CARBON DIOXIDE LEVEL 26 MMOL/L (20-31); CHLORIDE LEVEL 106 MMOL/L (98-107); CREATININE FOR GFR 0.78 MG/DL (0.55-1.30); GLOMERULAR FILTRATION RATE > 90.0 (>60); POTASSIUM SERUM 4.0 MMOL/L (3.5-5.1); SODIUM LEVEL 141 MMOL/L (136-145)
[2025-02-16 12:42] LABS: HEPATITIS B SURFACE ANTIBODY POSITIVE (POSITIVE)
[2025-02-16 12:44] LABS: HCG, SERUM QUALITATIVE NEGATIVE (NEGATIVE)
[2025-02-16 12:50] VITALS: BP 106/56; TEMP 97.6; O2SAT 100
[2025-02-16 13:07] LABS: HIV SCREEN CENTAUR EXPOSED NEGATIVE (NEGATIVE)
[2025-02-16 13:16] LABS: HEPATITIS C VIRUS ABY INDEX < 0.02 INDEX (<0.8)
== END 2025-02-16 12:53 | disposition home or self-care (01) ==
LOC: M ED 10:57
DX: Z77.21 Contact with and (suspected) exposure to potentially hazardous body fluids (principal); Z79.899 Other long term (current) drug therapy; Z88.1 Allergy status to other antibiotic agents; Z88.8 Allergy status to other drugs, medicaments and biological substances; Z91.040 Latex allergy status